=== PATIENT | female | born 1945 | race Caucasian/White ===

== ENCOUNTER 2017-12-19 18:20 | Inpatient (IN) ==
--- NOTE | 2017-12-19 18:50 | Emergency Department Note ---
START Narrative - START START: I examined this patient and my medical decision-making was reviewed with the Resident Physician. I agree with the documented findings, disposition and treatment plan as described except to the extent set forth below. 72 year-old female presents to the emergency room for generalized weakness. Patient also admits to some loose stools as well as urinary and bowel incontinence in her bed associated with some fleeting moments of confusion. She has no focal motor or sensory deficits. She denies chest pain or shortness of breath. No vomiting. She denies blood in her stool. She has had some urinary and bowel incontinence while lying in her bed. She does not walk much. Her family helps her up to the bedside commode as well as to the wheelchair. She has been unable to get up to even help him move herself due to the weakness. We will do a weakness workup on her and anticipate admission.
--- NOTE | 2017-12-19 18:51 | Emergency Department Note ---
Disposition Clinical Impression: Generalized weakness Diarrhea Qualifiers: Diarrhea type: unspecified type Qualified Code(s): R19.7 - Diarrhea, unspecified Disposition: Still a Patient Condition: Fair Forms: ED Satisfaction Letter General Adult HPI - General Chief complaint: ED Nausea/Vomiting/Diarrhea Stated complaint: gen weakness/not eating or drinking/diarrhea Time Seen by Provider: 12/19/17 18:27 Source: patient, family, EMS Mode of arrival: EMS Limitations: no limitations Nursing Notes Reviewed: Yes Vital Signs Reviewed: Yes - History of Present Illness HPI Narrative: 72-year-old female with significant past medical history of CHF presenting to the emergency department with chief complaint of generalized weakness and diarrhea. According to family she has been having these symptoms for a few days. Patient denies any pain at this time. She denies any fever, blood in her stool. Patient is a poor historian. According to family they were concerned because she became slightly altered at home. Patient is at baseline nonambulatory. At this time patient is alert and oriented 3 in the room. Pain Scale: 0 All systems ED: reviewed and negative except as stated. Neurological: Reports: weakness Past Medical History - Past Medical History Attestation: Yes The following information was validated with the patient. Medical history: Reports: arthritis, diabetes, RA Psychiatric history: Reports: no psych history - Social History Smoking Status: Former smoker Smokeless Tobacco Status: No Alcohol use: Reports: none Drug use: Reports: none Physical Exam - General Limitations: no limitations General appearance: alert, in no apparent distress, obese - Head Head exam: atraumatic, normocephalic, normal inspection - Eye Eye exam: Present: normal appearance. Absent: scleral icterus, conjunctival injection - ENT ENT exam: normal exam, mucous membranes dry - Neck Neck exam: Present: normal inspection, full ROM. Absent: tenderness, meningismus - Chest Chest inspection: Present: normal inspection, symmetric chest wall rise. Absent : tenderness, rash - Respiratory Respiratory exam: Present: other (Decreased breath sounds bilaterally) - Cardiovascular Cardiovascular exam: Present: regular rate, normal rhythm, normal heart sounds - Abdominal Exam Abdominal exam: Present: soft, Non-Tender. Absent: distention, guarding, rebound - Extremities Exam Extremities exam: Present: full ROM - Neurological Exam Neurological exam: Present: alert, oriented X3 - Psychiatric Psychiatric exam: Present: normal affect, normal mood - Skin Skin exam: Present: warm, intact Course Course Narrative: 72-year-old female presenting to the emergency Department chief complaint of weakness and confusion at home. Patient denies any pain at this time. Patient is alert and oriented 3 in the room with stable vital signs. We will perform a workup including CBC, CMP, troponin, EKG, chest x-ray and CT of the head. Disposition most likely admission. Pending results. Patient agrees with this plan. Vital Signs Temperature 98.3 F 12/19/17 18:22 Pulse Rate 58 12/19/17 18:22 Respiratory Rate 18 12/19/17 18:22 Blood Pressure 107/51 12/19/17 18:22 O2 Sat by Pulse Oximetry 95 12/19/17 18:22 Temperature 98.3 F 12/19/17 18:22 Pulse Rate 58 12/19/17 18:22 Respiratory Rate 18 12/19/17 18:22 Blood Pressure 107/51 12/19/17 18:22 O2 Sat by Pulse Oximetry 95 12/19/17 18:22 Oxygen Delivery Oxygen Delivery Room Air Medical Decision Making - EKG Data EKG #1 EKG attestation: Yes I reviewed and interpreted this EKG. EKG results narrative: Atrial fibrillation. Left bundle branch block. 66bpm QRS of 94, QTC 47. No signs of acute ST segment elevation or ischemia noted.
[2017-12-19 19:21] LABS: Clarity,Urine Cloudy (Clear)
[2017-12-19 19:22] LABS: Bacteria,Urine None Seen per hpf (None-Few); Hyaline Casts,Urine Few per lpf (None-Few); Squamous Epithelial Cell,Urine Many per lpf (None-Few)
[2017-12-19 19:24] LABS: Basophils % 0.1 %; Eosinophils # 0.1 K/mcL (0.0-0.6); Eosinophils % 0.2 %; Hemoglobin 12.5 g/dL (11.5-15.4); Immature Granulocytes % 1.6 % (0-4); Lymphocytes # 1.2 K/mcL (0.6-4.6); Lymphocytes % 5.8 %; Mean Corpuscular HGB Conc 32.9 g/dL (31.6-35.5); Mean Corpuscular Hemoglobin 31.8 pg (28.0-33.3); Mean Corpuscular Volume 96.7 fL (83.0-100.0); Mean Platelet Volume 9.2 fL (9.4-12.4); Monocytes % 9.7 %; Neutrophils # 16.9 K/mcL (1.6-8.9); Nucleated Red Blood Cells 0.1 /100 WBC (0); Platelet Count 141 K/mcL (140-400); Red Blood Count 3.93 M/mcL (3.82-4.97); Red Cell Distribution Width 16.2 % (11.5-14.5); Segmented Neutrophils % 82.6 %
--- NOTE | 2017-12-19 19:26 | Emergency Department Note ---
Disposition Clinical Impression: Generalized weakness, Unable to ambulate Diarrhea Qualifiers: Diarrhea type: unspecified type Qualified Code(s): R19.7 - Diarrhea, unspecified Abdominal pain Qualifiers: Abdominal location: generalized Qualified Code(s): R10.84 - Generalized abdominal pain Acute renal failure Qualifiers: Acute renal failure type: unspecified Qualified Code(s): N17.9 - Acute kidney failure, unspecified Pneumonia Qualifiers: Pneumonia type: due to unspecified organism Laterality: unspecified laterality Lung location: unspecified part of lung Qualified Code(s): J18.9 - Pneumonia, unspecified organism Disposition: Admitted As Inpatient Condition: Serious Time of Disposition: 22:49 Nausea/Vomiting/Diarrhea HPI - General Chief complaint: ED Nausea/Vomiting/Diarrhea Stated complaint: gen weakness/not eating or drinking/diarrhea Time Seen by Provider: 12/19/17 18:27 Source: patient, family, EMS Mode of arrival: EMS Limitations: no limitations Nursing Notes Reviewed: Yes Vital Signs Reviewed: Yes - Related Data Allergies Allergy/AdvReac Type Severity Reaction Status Date / Time Penicillins Allergy Rash Verified 12/19/17 22:08 Sulfa (Sulfonamide Allergy Itching Verified 12/19/17 22:10 Antibiotics) All systems ED: reviewed and negative except as stated. Constitutional: Denies: fever Cardiovascular: Denies: chest pain, palpitations Respiratory: Denies: cough, dyspnea Gastrointestinal: Reports: abdominal pain, diarrhea. Denies: nausea, vomiting, constipation Genitourinary: Denies: urgency, dysuria, frequency, hematuria Musculoskeletal: Denies: back pain Neurological: Reports: weakness. Denies: headache, numbness, paresthesias Past Medical History - Past Medical History Attestation: Yes The following information was validated with the patient. Source: patient Medical history: Reports: arthritis, diabetes, RA Psychiatric history: Reports: no psych history - Social History Smoking Status: Former smoker Smokeless Tobacco Status: No Alcohol use: Reports: none Drug use: Reports: none Physical Exam Morbidly obese, disheveled, unkempt - General Limitations: no limitations General appearance: alert, in no apparent distress, obese - Head Head exam: atraumatic, normocephalic, normal inspection - Eye Eye exam: Present: normal appearance, PERRL, EOMI - ENT ENT exam: normal exam, normal oropharynx, mucous membranes moist - Neck Neck exam: Present: normal inspection, full ROM, trachea midline - Chest Chest inspection: Present: normal inspection, symmetric chest wall rise - Respiratory Respiratory exam: Present: normal lung sounds bilaterally - Cardiovascular Cardiovascular exam: Present: regular rate, normal rhythm, normal heart sounds - Abdominal Exam Abdominal exam: Present: soft, tenderness (moderate generalized tenderness). Absent: distention, guarding, rebound, rigidity - Extremities Exam Extremities exam: Present: normal inspection, full ROM. Absent: tenderness, pedal edema - Neurological Exam Neurological exam: Present: alert, oriented X3 - Psychiatric Psychiatric exam: Present: normal affect, normal mood - Skin Skin exam: Present: warm, dry, intact, normal color Course Course Narrative: Patient was a signout from Dr. Warren and Dr. Park. Please see their notes for any additional detail. In summary, patient is a 72-year-old female who is a poor historian who presented today due to generalized abdominal pain, diarrhea , generalized weakness, inability to ambulate. Grand [id number] is present and states that she was at the patient and that over the past 2-3 days, she has become progressively weaker, is unable to get in and out of her bed, has been defecating and urinating on herself. She also states the patient has been mildly confused at home. The patient herself denied any other pain besides abdominal discomfort and diarrhea. She denies any chest pain, shortness breath, vomiting, nausea, fevers, dysuria, hematuria. CT scan of the head, EKG, basic blood work, urinalysis, CT abdomen and pelvis has been ordered. 22:41 on exam, patient was dehydrated, had dry mucous membranes. Creatinine came back elevated at 6.0. Patient has never had any renal issues in the past. Most recent creatinine was 0.6. Patient also has elevation white blood cell count of 20. Chest x-ray showed possible pneumonia with a pleural effusion. Head CT negative for any acute intracranial process. CT abdomen and pelvis shows calcification of the superior mesenteric vein that could represent a chronic clot. IV contrast CT scan was unable to be completed at this time due to creatinine. Reevaluation of the patient shows no abdominal pain at this time. I consulted Dr. Garcia with nephrology and discussed the case. It is a possibility that this patient's increased creatinine is due to significant dehydration from diarrhea. She has requested a urine sodium and CPK to be ordered. These were ordered and the ED. Patient was accepted for admission by Dr. Coughlin stable prior to admission. Chest X-Ray 12/19/17 18:30 IMPRESSION: Rotated exam. Left basilar consolidation or atelectasis. Small left pleural effusion is suspected. Radiographic follow-up is suggested. D/ / 12/19/2017 19:18:30 Josh Rachel MD / chavez Interpreting Provider: Josh Rachel MD Head CT 12/19/17 18:47 IMPRESSION: 1. No acute intracranial abnormality. 2. Moderate chronic white matter microvascular ischemic changes. D/ / Magno Xiao / Magno Xiao Interpreting Provider: Magno Xiao Abdomen/Pelvis CT 12/19/17 19:46 IMPRESSION: Left pleural effusion, ascites, and generalized anasarca. Calcifications within the superior mesenteric vein which may reflect chronic clot. Recommend repeating exam with IV contrast to rule out the possibility of acute clot. D/ / Elpidio Butt MD / Elpidio Butt MD Interpreting Provider: Elpidio Butt MD Vital Signs Temperature 98.3 F 12/19/17 18:22 Pulse Rate 58 12/19/17 18:22 Respiratory Rate 18 12/19/17 18:22 Blood Pressure 107/51 12/19/17 18:22 O2 Sat by Pulse Oximetry 95 12/19/17 18:22 Temperature 98.3 F 12/19/17 18:22 Pulse Rate 64 12/19/17 22:25 Respiratory Rate 18 12/19/17 23:20 Blood Pressure 95/58 12/19/17 23:20 O2 Sat by Pulse Oximetry 97 12/19/17 22:25 Oxygen Delivery Oxygen Delivery Nasal Cannula Nausea/Vomiting/Diarrhea - MDM Narrative Medical decision making narrative: Patient was a signout from Dr. Warren and Dr. Park. Please see their notes for any additional detail. In summary, patient is a 72-year-old female who is a poor historian who presented today due to generalized abdominal pain, diarrhea , generalized weakness, inability to ambulate. Grand [id number] is present and states that she was at the patient and that over the past 2-3 days, she has become progressively weaker, is unable to get in and out of her bed, has been defecating and urinating on herself. She also states the patient has been mildly confused at home. The patient herself denied any other pain besides abdominal discomfort and diarrhea. She denies any chest pain, shortness breath, vomiting, nausea, fevers, dysuria, hematuria. CT scan of the head, EKG, basic blood work, urinalysis, CT abdomen and pelvis has been ordered. 22:41 on exam, patient was dehydrated, had dry mucous membranes. Creatinine came back elevated at 6.0. Patient has never had any renal issues in the past. Most recent creatinine was 0.6. Patient also has elevation white blood cell count of 20. Chest x-ray showed possible pneumonia with a pleural effusion. Head CT negative for any acute intracranial process. CT abdomen and pelvis shows calcification of the superior mesenteric vein that could represent a chronic clot. IV contrast CT scan was unable to be completed at this time due to creatinine. Reevaluation of the patient shows no abdominal pain at this time. I consulted Dr. Garcia with nephrology and discussed the case. It is a possibility that this patient's increased creatinine is due to significant dehydration from diarrhea. She has requested a urine sodium and CPK to be ordered. These were ordered and the ED. Patient was accepted for admission by purnima Jaiems prior to admission. - Medical Records Medical records reviewed: Yes I reviewed the patient's medical records. - Lab Data Lab results reviewed: Yes I reviewed the patient's lab results. Result diagrams: 12/19/17 19:13 12/19/17 19:13 Lab Results 12/19/17 12/19/17 12/19/17 Range/Units 19:05 19:13 19:13 WBC 20.4 H (4.3-11.1) K/mcL RBC 3.93 (3.82-4.97) M/mcL Hgb 12.5 (11.5-15.4) g/dL Hct 38.0 (35.3-44.9) % MCV 96.7 (83.0-100.0) fL MCH 31.8 (28.0-33.3) pg MCHC 32.9 (31.6-35.5) g/dL RDW 16.2 H (11.5-14.5) % Plt Count 141 (140-400) K/mcL MPV 9.2 L (9.4-12.4) fL Immature Gran % 1.6 (0-4) % Seg Neutrophils % 82.6 % Lymphocytes % 5.8 % Monocytes % 9.7 % Eosinophils % 0.2 % Basophils % 0.1 % Neutrophils # 16.9 H (1.6-8.9) K/mcL Lymphocytes # 1.2 (0.6-4.6) K/mcL Monocytes # 2.0 H (0.0-1.3) K/mcL Eosinophils # 0.1 (0.0-0.6) K/mcL Basophils # 0.0 (0.0-0.2) K/mcL Nucleated RBCs/100 WBC 0.1 H (0) /100 WBC Sodium 130 L (136-145) mEq/L Potassium 3.1 L (3.5-5.1) mEq/L Chloride 90 L (98-107) mEq/L Carbon Dioxide 24 (23-29) mEq/L BUN 78 H (8-23) mg/dL Creatinine 6.02 H (0.60-1.20) mg/dL Est GFR ( Amer) 8 L (> 60) Est GFR (Non-Af Amer) 7 L (> 60) BUN/Creatinine Ratio 13 (6-26) Glucose 162 H (70-105) mg/dL Calculated Osmolality 297 (280-300) Lactic Acid (0.5-2.2) mmol/L Calcium 8.5 L (8.6-10.3) mg/dL Total Bilirubin 6.0 H (0.3-1.0) mg/dL AST 21 (13-39) Units/L ALT 8 (7-52) Units/L Alkaline Phosphatase 85 (34-104) Units/L Creatine Kinase (30-223) Units/L Troponin I 0.07 H* (< 0.04) ng/mL Serum Total Protein 6.7 (6.4-8.9) g/dL Albumin 2.3 L (3.5-5.7) g/dL Globulin 4.4 H (2.4-3.5) g/dL Albumin/Globulin Ratio 0.5 L (1.1-2.2) Ur Specimen Adequacy See below A Urine Color [place] A (Yellow) Urine Clarity Cloudy A (Clear) Urine pH GLUING PRESSMAN Ur Specific [place] GLUING PRESSMAN Urine Protein GLUING PRESSMAN Urine Glucose (UA) GLUING PRESSMAN Urine Ketones GLUING PRESSMAN Urine Blood GLUING PRESSMAN Urine Nitrite GLUING PRESSMAN Urine Bilirubin GLUING PRESSMAN Urine Urobilinogen GLUING PRESSMAN Ur Leukocyte Esterase GLUING PRESSMAN Urine Microscopic RBC 3-5 H (0-3) per hpf Urine Microscopic WBC 5-15 H (0-3) per hpf Ur Squamous Epith Cells Many H (None-Few) per lpf Amorphous Sediment Many H (Few) Urine Bacteria None Seen (None-Few) per hpf Hyaline Casts Few (None-Few) per lpf Urine Yeast Few H (None Seen) per hpf Ur Culture Indicated? NO (NO) 12/19/17 12/19/17 Range/Units 22:37 22:37 WBC (4.3-11.1) K/mcL RBC (3.82-4.97) M/mcL Hgb (11.5-15.4) g/dL Hct (35.3-44.9) % MCV (83.0-100.0) fL MCH (28.0-33.3) pg MCHC (31.6-35.5) g/dL RDW (11.5-14.5) % Plt Count (140-400) K/mcL MPV (9.4-12.4) fL Immature Gran % (0-4) % Seg Neutrophils % % Lymphocytes % % Monocytes % % Eosinophils % % Basophils % % Neutrophils # (1.6-8.9) K/mcL Lymphocytes # (0.6-4.6) K/mcL Monocytes # (0.0-1.3) K/mcL Eosinophils # (0.0-0.6) K/mcL Basophils # (0.0-0.2) K/mcL Nucleated RBCs/100 WBC (0) /100 WBC Sodium (136-145) mEq/L Potassium (3.5-5.1) mEq/L Chloride (98-107) mEq/L Carbon Dioxide (23-29) mEq/L BUN (8-23) mg/dL Creatinine (0.60-1.20) mg/dL Est GFR ( Amer) (> 60) Est GFR (Non-Af Amer) (> 60) BUN/Creatinine Ratio (6-26) Glucose (70-105) mg/dL Calculated Osmolality (280-300) Lactic Acid 3.5 H (0.5-2.2) mmol/L Calcium (8.6-10.3) mg/dL Total Bilirubin (0.3-1.0) mg/dL AST (13-39) Units/L ALT (7-52) Units/L Alkaline Phosphatase (34-104) Units/L Creatine Kinase 19 L (30-223) Units/L Troponin I (< 0.04) ng/mL Serum Total Protein (6.4-8.9) g/dL Albumin (3.5-5.7) g/dL Globulin (2.4-3.5) g/dL Albumin/Globulin Ratio (1.1-2.2) Ur Specimen Adequacy Urine Color (Yellow) Urine Clarity (Clear) Urine pH Ur Specific [place] Urine Protein Urine Glucose (UA) Urine Ketones Urine Blood Urine Nitrite Urine Bilirubin Urine Urobilinogen Ur Leukocyte Esterase Urine Microscopic RBC (0-3) per hpf Urine Microscopic WBC (0-3) per hpf Ur Squamous Epith Cells (None-Few) per lpf Amorphous Sediment (Few) Urine Bacteria (None-Few) per hpf Hyaline Casts (None-Few) per lpf Urine Yeast (None Seen) per hpf Ur Culture Indicated? (NO) - Radiology Data Radiology results reviewed: Yes I reviewed the patient's radiology results. Chest X-Ray 12/19/17 18:30 IMPRESSION: Rotated exam. Left basilar consolidation or atelectasis. Small left pleural effusion is suspected. Radiographic follow-up is suggested. D/ / 12/19/2017 19:18:30 Josh Rachel MD / bcarter Interpreting Provider: Josh Rachel MD Head CT 12/19/17 18:47 IMPRESSION: 1. No acute intracranial abnormality. 2. Moderate chronic white matter microvascular ischemic changes. D/ / Magno Xiao / Magno Xiao Interpreting Provider: Magno Xiao Abdomen/Pelvis CT 12/19/17 19:46 IMPRESSION: Left pleural effusion, ascites, and generalized anasarca. Calcifications within the superior mesenteric vein which may reflect chronic clot. Recommend repeating exam with IV contrast to rule out the possibility of acute clot. D/ / Elpidio Butt MD / Elpidio Butt MD Interpreting Provider: Elpidio Butt MD Critical Care Time Critical Care Time: Yes Total Critical Care Time: 45 Attestation: Critical care performed: Time is exclusive of separately billable procedures. Time includes: direct patient care, patient reassessment, coordination of patient care, interpretation of data (laboratory data, radiology data, and respiratory data), review of patient's medical records, medical consultation and documentation of patient care. Procedures included in critical care time: Procedures excluded from critical care time: S.B.A.R. - S.B.A.R. Situation: Demographics, MOA Background: Presenting Complaint, Relevant PMH, Meds, & Allergies Assessment: Vital Signs, Course and respsone to treatment, Exam Concerns, Patient/Family Expectation, Pertinant Lab Results, Outstanding Labs Recommendation: Barrier(s) to disposition, Recommendation based on pending studies, treatments, or consults S.B.A.R. Report Given to: Dr. Coughlin Attestation Statement - Attestation Attestation: I, Ge Collazo MD, personally evaluated this patient and discussed their management with the resident physician. I reviewed the resident's note and agree with the documented findings, medical decision making, and plan of care. This patient was signed out at shift change from Dr. Yfn Warren and Dr. Park. Please refer to their notes for complete details of history and physical examination. Patient presented with diarrhea and generalized weakness. She has apparently been sick for several weeks. She lives with a son and other family members report that when they went over today they found her in bed soaked with urine and feces in reported she appeared to have not been out of bed in several days. Patient is awake alert and oriented. She complains of diarrhea and some mid abdominal pain. She denies any chest pain or increased shortness of breath. She has not noticed any fever. She states that she has been urinating somewhat less than usual and her urine has been dark. On examination patient is a morbidly obese elderly female in no acute distress. She is alert and oriented 3. There is no cyanosis or diaphoresis. Breath sounds are equal bilaterally with no definite rales or wheezes noted. Heart regular rate and rhythm. Abdomen is soft with normal bowel sounds. Mild mid abdominal tenderness. Labs reviewed. WBC 20.4 with 82.6% segs. Creatinine 6.0 tube. All prior creatinines have been normal. Lactic acid 3.5. Total bilirubin 6.0. Troponin 0.07. Chest x-ray shows: Rotated exam. Left basilar consolidation or atelectasis. Small left pleural effusion is suspected. Head CT shows no acute intracranial abnormality. CT scan of the abdomen and pelvis without contrast shows: Left pleural effusion, ascites, and generalized anasarca. Calcifications within the superior mesenteric vein which may reflect chronic clot. Recommend repeating exam with IV contrast to rule out the possibility of acute clot. Dr. Clayton discussed the case with the twisting operator, Dr. Garcia. The hospitalist , Dr. Coughlin, was consulted and accepted admission of the patient.
[2017-12-19 19:30] LABS: Color,Urine Orange (Yellow)
[2017-12-19] MEDS ORDERED: 0.9 % Sodium Chloride 1,000 ML IVC ONE ×2 (19:40→19:56)
[2017-12-19 19:44] LABS: Albumin 2.3 g/dL (3.5-5.7); Albumin/Globulin Ratio 0.5 (1.1-2.2); Calcium 8.5 mg/dL (8.6-10.3); Globulin 4.4 g/dL (2.4-3.5); Potassium 3.1 mEq/L (3.5-5.1); Total Protein 6.7 g/dL (6.4-8.9)
[2017-12-19 19:47] LABS: Troponin I 0.07 ng/mL (< 0.04)
[2017-12-19 19:50] LABS: Amorphous Sediment,Urine Many (Few); Yeast,Urine Few per hpf (None Seen)
[2017-12-19] MEDS ORDERED: Aspirin 325 MG TABLET PO ONE (21:48)
[2017-12-19] MEDS ORDERED: cefTRIAXone 2,000 MG in Water for inj. (sterile) 20 ML 20 ML IVPB ONE (22:20)
[2017-12-19] MEDS ORDERED: Potassium Chloride Elixir 20 MEQ/15 ML UDC PO ONE (22:20)
[2017-12-19] MEDS ORDERED: Azithromycin 500 MG in D5% in Water 250 ML IVPB ONE (22:20)
--- NOTE | 2017-12-19 23:53 | Internal Med History&Physical ---
Date of Encounter: 12/19/17 Time of Encounter: 23:47 Assessment and Plan (1) Multiple sclerosis Current visit: Yes Status: Chronic Patient on daughter says she has multiple sclerosis for many years but does not follow up with neurology is unclear if any contribution to her weakness and incontinence we will consult neurology for further evaluation (2) Leukocytosis Current visit: Yes Status: Acute Acute infectious process possible pneumonia and infectious gastroenteritis Qualifiers: Leukocytosis type: bandemia Qualified Code(s): D72.825 - Bandemia (3) Dehydration Current visit: Yes Status: Acute Due to nausea vomiting and diarrhea (4) Abdominal pain Current visit: Yes Status: Acute Generalized and nonspecific CT of the abdomen unremarkable Qualifiers: Abdominal location: generalized Qualified Code(s): R10.84 - Generalized abdominal pain (5) Acute renal failure Current visit: Yes Status: Acute very likely due to dehydration evening sitter consulted Qualifiers: Acute renal failure type: unspecified Qualified Code(s): N17.9 - Acute kidney failure, unspecified (6) Diarrhea Current visit: Yes Status: Acute Patient has nausea vomiting and diarrhea suggestive of gastroenteritis appears to have been persistent for about 2-3 weeks we will consult GI for further evaluation no recent antibiotic Qualifiers: Diarrhea type: unspecified type Qualified Code(s): R19.7 - Diarrhea, unspecified (7) Generalized weakness Current visit: Yes Status: Acute Patient with generalized weakness and unable to walk or ambulate (8) Unable to ambulate Current visit: Yes Status: Acute Internal Medicine - H&P: HPI Chief complaint: nausea, vomitting and diaarhea Admitted From: Emergency Dept Plans for Post Hospital Care: Home History of present illness: Ms. Ambriz is a 72 year old female Patient with history of morbid obesity, diabetes, rheumatoid arthritis, multiple sclerosis but not on medication nor being followed by neurology.. Patient presented emergency room due to generalized weakness has been having urinary incontinence and bowel incontinence and some confusion unable to ambulate daughter says she been weak for about 2 weeks but much more weak in the last 2-3 days with persistent nausea vomiting and diarrhea with poor by mouth intake and some vague abdominal pain patient has multiple studies CT of the head unremarkable CT of the abdomen was unremarkable except for calcified superior mesenteric vein labs showed creatinine about 6 of acute renal failure nephrology has been consult patient on IV dehydration denies any recent antibiotic we will check C. difficile anyway also had leukocytosis a white count over 20,000 chest x-ray suggestive of pneumonia with pleural effusion. It is unclear about multiple sclerosis since she does not have a neurology whether has any contribution to her weakness and incontinence. Past Med Surg Social Fam HX - Past Medical History Medical history: arthritis, diabetes, RA Psychiatric history: no psych history - Social History Smoking Status: Former smoker Smokeless Tobacco Status: No Alcohol use: none Drug use: none Internal Medicine - H&P: Meds 3 Allergy/AdvReac Type Severity Reaction Status Date / Time Penicillins Allergy Rash Verified 12/19/17 22:08 Sulfa (Sulfonamide Allergy Itching Verified 12/19/17 22:10 Antibiotics) ROS unobtainable: due to mental status All Systems PM: A 10-system review of systems was performed and is negative for pertinent findings except as documented above in the HPI. - Constitutional Vitals: Temp Pulse Resp BP Pulse Ox 98.3 F 64 18 95/58 97 12/19/17 18:22 12/19/17 22:25 12/19/17 23:20 12/19/17 23:20 12/19/17 22:25 - Head Head exam: Present: atraumatic, normocephalic - Eye Eye exam: Present: PERRL, conjuntiva pink, sclera anicteric Pupils: Present: PERRL - Respiratory Respiratory exam: Present: rhonchi - Cardiovascular Cardiovascular exam: Present: RRR, +S1, +S2. Absent: diastolic murmur, gallop, rubs, systolic murmur - GI/Abdominal GI/Abdominal exam: Present: tenderness Internal Med - H&P Results - Labs CBC & Chem 7: 12/19/17 19:13 12/19/17 19:13
[2017-12-19] MEDS ORDERED: Naloxone 0.4 MG/ML INJ IVP PRN (23:58)
[2017-12-20] MEDS: Azithromycin 500 MG in D5% in Water 250 ML IVPB SCH (00:56)
[2017-12-20] MEDS: 0.9 % Sodium Chloride 1,000 ML IVC SCH (00:56)
[2017-12-20] MEDS: Acetaminophen 325 MG TABLET PO PRN (02:22)
[2017-12-20 02:26] LABS: Mean Platelet Volume 9.3 fL (9.4-12.4)
[2017-12-20 02:27] LABS: Hematocrit 36.6 % (35.3-44.9); Hemoglobin 12.2 g/dL (11.5-15.4); Mean Corpuscular HGB Conc 33.3 g/dL (31.6-35.5); Mean Corpuscular Hemoglobin 32.1 pg (28.0-33.3); Mean Corpuscular Volume 96.3 fL (83.0-100.0); Platelet Count 120 K/mcL (140-400); Red Cell Distribution Width 16.3 % (11.5-14.5)
[2017-12-20 02:44] LABS: Albumin 2.2 g/dL (3.5-5.7); Albumin/Globulin Ratio 0.5 (1.1-2.2); Bilirubin,Total 6.1 mg/dL (0.3-1.0); Calcium 8.4 mg/dL (8.6-10.3); Chol/HDL Ratio 12.2 (0-4.9); Globulin 4.5 g/dL (2.4-3.5); Magnesium 1.9 mg/dL (1.6-2.6); Potassium 3.3 mEq/L (3.5-5.1); Total Protein 6.7 g/dL (6.4-8.9)
[2017-12-20] MEDS ORDERED: *HR* Enoxaparin 40 MG/0.4 ML SYRINGE SQ SCH (06:00)
[2017-12-20] MEDS ORDERED: Ondansetron 4 MG/2 ML VIAL IVP PRN (08:07)
[2017-12-20] MEDS: cefTRIAXone 1,000 MG in Water for inj. (sterile) 20 ML 10 ML IVP SCH (08:38)
--- NOTE | 2017-12-20 11:05 | Gastroenterology Consult Note ---
<Rica Garcia - Last Filed: 12/20/17 11:51> Date of Encounter: 12/20/17 Time of Encounter: 09:45 - Assessment and plan (1) Acute renal failure Current Visit: Yes Status: Acute Assessment and plan: New onset renal failure, may be related to vomiting and diarrhea. IV hydration, needs nephrology consult. Will check stool studies and proceed with colonoscopy when ok with nephrology. Qualifiers: Acute renal failure type: unspecified Qualified Code(s): N17.9 - Acute kidney failure, unspecified (2) Nausea and vomiting Current Visit: Yes Status: Acute Assessment and plan: Pts daughter reports nausea and vomiting and poor appetite for the past 3 weeks , CT abdomen normal except for ascites. Anticipate EGD, will discuss with Dr Schuster. Qualifiers: Vomiting type: cyclical vomiting Vomiting Intractability: intractable Qualified Code(s): G43.A1 - Cyclical vomiting, intractable (3) Cirrhosis of liver Current Visit: Yes Status: Acute Assessment and plan: Pt had EGD in 2010 that showed Grade I varices. She will need repeat EGD to monitor varices. She has not followed up with GI since that time. Will order workup for infectious, autoimmune hepatitis. Will also check ammonia, as pt has altered mental status, may need lactulose and/or rifaximin. She reported a history of MS, unsure of her baseline status. Will order liver ultrasound to rule out CBD obstrucion as cause for elevated LFTs. Qualifiers: Hepatic cirrhosis type: other cirrhosis Qualified Code(s): K74.69 - Other cirrhosis of liver (4) Diarrhea Current Visit: Yes Status: Acute Assessment and plan: Stool studies ordered, needs colonoscopy to rule out microscopic colitis when WBC is improved and ok with nephrology. Qualifiers: Diarrhea type: unspecified type Qualified Code(s): R19.7 - Diarrhea, unspecified - Time Spent With Patient Total time spent is greater than 50% in coordination of care (as documented) at patient's floor/unit and/or counseling patient: GI History of Present Illness - Data of Consult Patient: new to practice Consult date: 12/20/17 Requesting Physician: Aj Gallagher - Consult Narrative Reason for consult: cirrhosis of the liver History of present illness: Ms. Ambriz is a 72 year old female patient with a history of morbid obesity, diabetes, rheumatoid arthritis, multiple sclerosis (not on medication nor being followed by neurology), documented history of cirrhosis in 2010 (never been seen by GI0. Patient presented emergency room due to generalized weakness has been having urinary incontinence and bowel incontinence and some confusion unable to ambulate daughter says she been weak for about 2 weeks but much more weak in the last 2-3 days. She also reported persistent nausea vomiting and diarrhea with poor by mouth intake and some vague abdominal pain. CT of the head unremarkable, CT of the abdomen was unremarkable except for calcified superior mesenteric vein, and moderate amount of ascites and general anasarca. Chest x-ray suggestive of pneumonia with pleural effusion. WBC 27, hgb 12.2, PLT 120, NA 129, K 3.3, Creat 5.96, T bili 6.1, AST 18, ALT 7, troponin 0.07, albumin 2.2, CT abdomen shows Left pleural effusion, ascites, and generalized anasarca.Calcifications within the superior mesenteric vein which may reflect chronic clot. Pt is a very poor historian, no family present to elicit history from. MELD NA Child Noonan Colonoscopy: EGD: 01/16 reactive gastropathy grade I varices (Dr Park) NSAIDS/ASA:asa Anticoagulants: lovenox Past Med Surg Social Fam HX - Past Medical History Medical history: arthritis, diabetes, RA Psychiatric history: no psych history - Past Surgical History Surgical History: cholecystectomy - Social History Smoking Status: Former smoker Smokeless Tobacco Status: No Alcohol use: none Drug use: none - Family History Mother Living Status: Cause of : cancer Hx Family Cancer: Yes (throat cancer) Father Living Status: Hx Family Cancer: Yes (lung cancer) ROS unobtainable: due to mental status - Constitutional Vitals: Temp Pulse Resp BP Pulse Ox 97.8 F 73 15 96/69 99 12/20/17 10:10 12/20/17 10:10 12/20/17 10:10 12/20/17 10:10 12/20/17 10:10 Exam: CONSTITUTIONAL:~alert, but unable to answer questions, no acute distress.~HEAD:~ normocephalic.~EYES:~mild icterus.~NECK:~no obvious swelling.~HEART:~regular rate and rhythm, no murmurs.~LUNGS:~bilateral poor air entry.~ABDOMEN:~distended , soft, non tender, difficult to asses for masses or organomegaly due to obese pendulous abdomen, orange peel edema noted to lower abdomen, orange urine noted in the do .~RECTAL EXAM:~Deferred.~EXTREMITIES:~no clubbing, cyanosis, 2+ BLE with brown discoloration.~SKIN:~mild icterus.~NEUROLOGIC:~poor historian and pt is unable to answer questions effectively although she is alert and talking~~~ Results - Labs CBC & Chem 7: 12/20/17 02:10 12/20/17 02:10 Labs: Last Result Calcium 8.4 mg/dL (8.6-10.3) L 12/20/17 02:10 Troponin I 0.07 ng/mL (< 0.04) H* 12/19/17 19:13 Triglycerides 112 mg/dL (< 150) 12/20/17 02:10 Entire Visit Hgb 12.2 g/dL (11.5-15.4) 12/20/17 02:10 Hct 36.6 % (35.3-44.9) 12/20/17 02:10 Total Bilirubin 6.1 mg/dL (0.3-1.0) H 12/20/17 02:10 AST 18 Units/L (13-39) 12/20/17 02:10 ALT 7 Units/L (7-52) 12/20/17 02:10 Consult Discharge Plan - Plan Referrals: Cristiana Arreaga MD [Primary Care Provider] - <MarielyPatriziaIsrael - Last Filed: 12/20/17 20:39> Date of Encounter: 12/20/17 Time of Encounter: 14:25 - Time Spent With Patient Total time spent is greater than 50% in coordination of care (as documented) at patient's floor/unit and/or counseling patient: GI History of Present Illness - Data of Consult Requesting Physician: Aj Gallagher - Consult Narrative History of present illness: Ms. Ambriz is a 72 year old female - Constitutional Vitals: Temp Pulse Resp BP Pulse Ox 97.8 F 71 14 94/57 95 12/20/17 14:41 12/20/17 14:41 12/20/17 14:41 12/20/17 14:41 12/20/17 14:41 Results - Labs CBC & Chem 7: 12/20/17 02:10 12/20/17 02:10 Labs: Last Result Calcium 8.4 mg/dL (8.6-10.3) L 12/20/17 02:10 Iron 92 mcg/dL (50-170) 12/20/17 11:05 % Saturation 82 % (15-50) H 12/20/17 11:05 Transferrin 80 mg/dL (203-362) L 12/20/17 11:05 Troponin I 0.07 ng/mL (< 0.04) H* 12/19/17 19:13 Triglycerides 112 mg/dL (< 150) 12/20/17 02:10 Entire Visit Hgb 12.2 g/dL (11.5-15.4) 12/20/17 02:10 Hct 36.6 % (35.3-44.9) 12/20/17 02:10 PT 24.8 Seconds (9.4-12.1) H 12/20/17 10:51 Total Bilirubin 6.1 mg/dL (0.3-1.0) H 12/20/17 02:10 AST 18 Units/L (13-39) 12/20/17 02:10 ALT 7 Units/L (7-52) 12/20/17 02:10 Ammonia 48 mcmol/L (16-53) 12/20/17 10:51 - ABG ABG results: PT/INR, D-dimer PT 24.8 Seconds (9.4-12.1) H 12/20/17 10:51 - Attending Attestation I have personally performed a face to face evaluation on this patient. I have reviewed and agree with the care plan. History and Exam by me shows: Pt with cirrhosis now with acute renal failure with diarrhea ~ 1 week. Has coagulopathy and low albumin. r/o SBP Rec: ARF management per nephrology. IV albumin and Vit K . Stool studies. No need for scopes at this point. Ascitic tap diagnostic
[2017-12-20 11:21] LABS: INR 2.3; Prothrombin Time 24.8 Seconds (9.4-12.1)
[2017-12-20 11:49] LABS: % Iron Saturation 82 % (15-50); Iron 92 mcg/dL (50-170); Transferrin 80 mg/dL (203-362)
--- NOTE | 2017-12-20 13:06 | Nephrology Consult Note ---
Date of Encounter: 12/20/17 Time of Encounter: 14:30 Assessment and Plan (1) YURI (acute kidney injury) Current Visit: Yes Status: Acute Elevated SCr in the setting of decreased po intake, N/V/D and hypotension appears pre-renal Agree with volume repletion. SCr has note improved much overnight but will continue agree with holding diuretics Discussed in great details with patient and family the possible need for SYSTEMS PROTECTION TECHNICIAN if more improvement by tomorrow especially given patient's significant third spacing. Pt and family very agreeable to proceed with whatever necessary Avoid nephrotoxins if possible UOp not impressive so far urine sodium noted low at 10. will repeat US as previous results not complete will check CPK and uric acid levels Will consider iVF and/or albumin boluses if needed to maintain BP readings Obtain US of kidney (2) Hypokalemia Current Visit: Yes Status: Acute Potassium decreased due to GI losses. Replete gently (3) Cirrhosis of liver Current Visit: Yes Status: Acute Per GI, already in workup. Third spacing as a result with ascite, pleural effusion noted on CT Qualifiers: Hepatic cirrhosis type: other cirrhosis Qualified Code(s): K74.69 - Other cirrhosis of liver History of Present Illness - Reason for Consult Consult date: 12/20/17 Acute Kidney Injury Requesting physician: Luan Clayton - History of Present Illness 72 y o female with PMH of morbid obesity, DM, MS per family and RA mostly bed bound admitted with worsening generalized weakness along with decerased po intake and N/V/D for several day. Per family, pt has been unable to get out of bed at all for the past 2-3 weeks. Scr noted at 6.02, GFR 7 with previous SCr noted at 0.98, GFR >60. Family denies any new medications but reports pt was taking laisx for edema with not much improvement. No NSAIDs use. BP readings noted low down to 80s/40s on presentation. Past Med Surg Social Fam HX - Past Medical History Medical history: arthritis, diabetes, RA Psychiatric history: no psych history - Past Surgical History Surgical History: cholecystectomy - Social History Smoking Status: Former smoker Smokeless Tobacco Status: No Alcohol use: none Drug use: none - Family History Mother Living Status: Cause of : cancer Hx Family Cancer: Yes (throat cancer) Father Living Status: Hx Family Cancer: Yes (lung cancer) Medications and Allergies Atenolol [Tenormin] 25 mg PO DAILY 12/20/17 [History] Ergocalciferol (VITAMIN D2) [Vitamin D2] 50,000 unit PO QWEEK 12/20/17 [History] Furosemide [Lasix] 40 mg PO BID 12/20/17 [History] Omeprazole [PriLOSEC] 40 mg PO DAILY 12/20/17 [History] Oxycodone HCl [Oxycodone HCl] 15 mg PO DAILY 12/20/17 [History] 3 Allergy/AdvReac Type Severity Reaction Status Date / Time Penicillins Allergy Rash Verified 12/19/17 22:08 Sulfa (Sulfonamide Allergy Itching Verified 12/19/17 22:10 Antibiotics) Review of Systems All Systems: reviewed and no additional remarkable complaints except as stated ( 10 systems reviewed) Exam - Vital Signs Vital signs: Initial Vital Signs Temp Pulse Resp BP Pulse Ox 98.3 F 58 18 107/51 95 12/19/17 18:22 12/19/17 18:22 12/19/17 18:22 12/19/17 18:22 12/19/17 18:22 Vital Signs - Last 8 Hours Temp Pulse Resp BP Pulse Ox 12/20/17 10:10 97.8 F 73 15 96/69 99 12/20/17 06:40 97.6 F 67 12 92/55 97 Intake and Output 12/19/17 12/20/17 12/20/17 23:59 07:59 15:59 Intake Total 250 / 250 60 / 60 Output Total 25 / 25 Balance 225 / 225 60 / 60 Intake: IV Fluids 250 / 250 Zithromax 500 mg In Dextrose 5% 250 / 250 250 ML @ 252 mls/hr IVPB Q24H [facility] Rx#:[id number] Oral 0 / 0 60 / 60 Output: Urine 25 / 25 Catheter 0 / 0 Other: Meal Breakfast Percent of Meal Consumed 5% Weight 149.7 kg 149.7 kg Blood Glucose* 161 149 Patient Weight 12/20/17 23:59 Weight 149.7 kg - General Appearance General appearance: obese, chronically ill EENT: ATNC, mucous membranes dry, scleral icterus Neck: no JVD, supple Additional Comments: decreased BS bases Cardiology: edema (LE bilat), normal S1, normal S2 Gastrointestinal: no tenderness, no guarding, obese Integumentary: warm and dry Neurologic: no focal deficit Musculoskeletal: no deformities Psychiatric: mood/affect appropriate, cooperative Results - Lab Results 12/20/17 02:10 12/20/17 02:10 Most recent lab results Calcium 8.4 mg/dL (8.6-10.3) L 12/20/17 02:10 Magnesium 1.9 mg/dL (1.6-2.6) 12/20/17 02:10 Urine Sodium 10.3 mEq/L 12/19/17 19:54 Consult Discharge Plan - Plan Referrals: Cristiana Arreaga MD [Primary Care Provider] -
--- NOTE | 2017-12-20 16:30 | Neurology - Consult Note ---
Date of Encounter: 12/20/17 Time of Encounter: 16:24 Assessment and Plan (1) Generalized weakness Current Visit: Yes Status: Acute At this juncture given what I do know I am not convinced that this patient has multiple sclerosis. But unfortunately I am not able to give a good history because of the delirium. One factor however is that the MRI scan of the brain completed in February 2012 was essentially normal. At that time she would then 67 years old, and certainly if she had demyelinating disease it would have been apparent by then. Perhaps they have had an episode of optic neuritis at some time of her life. Certainly I am doubtful that demyelinating disease is in anyway related to her acute admission. She is bedridden and nonambulatory at her baseline. Certainly she has multiple reasons for acute delirium, she has an elevated white count, BUN and creatinine are elevated, serum lactate is elevated. She has had diarrhea which may suggest acute gastroenteritis. She denies headache or nuchal rigidity. It is doubtful that a central nervous system infectious process is playing a role here. Her neck is supple. I will try to reassess her tomorrow. However, even if she does have multiple sclerosis, given her overall medical condition and her age I would not likely start her on disease modifying therapy. We will obtain a CT scan of the head to rule out any other acute process. History of Present Illness HPI: Ms. Ambriz is a 72 year old female who is seen for neurologic consultation secondary to possible history of multiple sclerosis. She is admitted acutely secondary to profound weakness, lethargy and loose stools. She is nonambulatory at baseline. She really cannot give a good history as she is very somnolent. She denies headache, she denies neck pain. She is morbidly obese and has multiple chronic problems. She cannot really tell me when she was diagnosed with MS. I see that she did have an MRI scan of the head back in February 2012 which was normal. 5 years ago she would have been 67 years old. Certainly if she had multiple sclerosis that should be demyelinating plaques present. She is being seen by GI and due to a history of cirrhosis of the liver GI is working her up for other possibilities. Lactic acid is elevated which is one possible scenario for her mental status change. WBCs today are 27.2. BUN is 77 , creatinine is 5.96. She does have a history of diabetes. Past Med Surg Social Fam HX - Past Medical History Medical history: arthritis, diabetes, RA Psychiatric history: no psych history - Past Surgical History Surgical History: cholecystectomy - Social History Smoking Status: Former smoker Smokeless Tobacco Status: No Alcohol use: none Drug use: none - Family History Mother Living Status: Cause of : cancer Hx Family Cancer: Yes (throat cancer) Father Living Status: Hx Family Cancer: Yes (lung cancer) Medications and Allergies Atenolol [Tenormin] 25 mg PO DAILY 12/20/17 [History] Ergocalciferol (VITAMIN D2) [Vitamin D2] 50,000 unit PO QWEEK 12/20/17 [History] Furosemide [Lasix] 40 mg PO BID 12/20/17 [History] Omeprazole [PriLOSEC] 40 mg PO DAILY 12/20/17 [History] Oxycodone HCl [Oxycodone HCl] 15 mg PO DAILY 12/20/17 [History] 3 Allergy/AdvReac Type Severity Reaction Status Date / Time Penicillins Allergy Rash Verified 12/19/17 22:08 Sulfa (Sulfonamide Allergy Itching Verified 12/19/17 22:10 Antibiotics) All Systems: The remainder of the systems were reviewed and are negative Review of Systems: Review of systems is consistent with a history of present illness and otherwise negative. Physical Examination - Vital Signs Vital Signs: Initial Vital Signs Temp Pulse Resp BP Pulse Ox 98.3 F 58 18 107/51 95 12/19/17 18:22 12/19/17 18:22 12/19/17 18:22 12/19/17 18:22 12/19/17 18:22 - Exam Exam: Neurologic examination finds the following; Cerebral functions-she is arousable to voice, however she is somnolent and has difficulty staying awake. She is also mildly confused. These findings are consistent with acute delirium. She is able to follow some simple commands and answers some questions appropriately, others not so. She does make eye contact. She is able to identify correctly the number of fingers that I held up in front of her. She knows that she is in [facility]. Cranial nerves-pupils are equal and reactive to light, extraocular motility is intact. Funduscopic examination is difficult because of her position in the bed. Corneal reflexes are brisk bilaterally. There is no facial asymmetry. Speech is somewhat dysarthric however she is edentulous as well as somewhat drowsy. Tongue protrudes midline. Cerebellar functions-there is no nystagmus or ocular bobbing. Motor exam finds no focal deficits. She squeezes with full power with both upper and bottom lacer hand. Her legs are weak however she is able to wiggle the toes on both feet on command. Tibialis anterior strength is 4/5 symmetrically. There are no involuntary movements identified no atrophy present. Sensory exam finds decreased sensation to pinprick distally. Deep tendon reflexes are diminished throughout. No Babinski or ankle clonus are present. Results - Laboratory Findings CBC and BMP: 12/20/17 02:10 12/20/17 02:10 Abnormal lab findings: Abnormal lab results WBC 27.2 K/mcL (4.3-11.1) H 12/20/17 02:10 RBC 3.80 M/mcL (3.82-4.97) L 12/20/17 02:10 RDW 16.3 % (11.5-14.5) H 12/20/17 02:10 Plt Count 120 K/mcL (140-400) L 12/20/17 02:10 MPV 9.3 fL (9.4-12.4) L 12/20/17 02:10 Neutrophils # 16.9 K/mcL (1.6-8.9) H 12/19/17 19:13 Monocytes # 2.0 K/mcL (0.0-1.3) H 12/19/17 19:13 Nucleated RBCs/100 WBC 0.1 /100 WBC (0) H 12/19/17 19:13 PT 24.8 Seconds (9.4-12.1) H 12/20/17 10:51 Sodium 129 mEq/L (136-145) L 12/20/17 02:10 Potassium 3.3 mEq/L (3.5-5.1) L 12/20/17 02:10 Chloride 91 mEq/L (98-107) L 12/20/17 02:10 BUN 77 mg/dL (8-23) H 12/20/17 02:10 Creatinine 5.96 mg/dL (0.60-1.20) H 12/20/17 02:10 Est GFR ( Amer) 8 (> 60) L 12/20/17 02:10 Est GFR (Non-Af Amer) 7 (> 60) L 12/20/17 02:10 Glucose 196 mg/dL (70-105) H 12/20/17 02:10 POC Glucose 176 (58-89) H 12/19/17 23:55 Lactic Acid 2.8 mmol/L (0.5-2.2) H 12/20/17 13:30 Uric Acid 22.2 mg/dL (2.3-7.6) H 12/20/17 13:30 Calcium 8.4 mg/dL (8.6-10.3) L 12/20/17 02:10 % Saturation 82 % (15-50) H 12/20/17 11:05 Transferrin 80 mg/dL (203-362) L 12/20/17 11:05 Total Bilirubin 6.1 mg/dL (0.3-1.0) H 12/20/17 02:10 Creatine Kinase 19 Units/L (30-223) L 12/19/17 22:37 Troponin I 0.07 ng/mL (< 0.04) H* 12/19/17 19:13 B-Natriuretic Peptide 989 pg/mL (Less than 100) H 12/20/17 02:10 Albumin 2.2 g/dL (3.5-5.7) L 12/20/17 02:10 Globulin 4.5 g/dL (2.4-3.5) H 12/20/17 02:10 Albumin/Globulin Ratio 0.5 (1.1-2.2) L 12/20/17 02:10 HDL Cholesterol 5 mg/dL (40-59) L 12/20/17 02:10 Cholesterol/HDL Ratio 12.2 (0-4.9) H 12/20/17 02:10 Ur Specimen Adequacy See below A 12/19/17 19:05 Urine Color Harlan (Yellow) A 12/19/17 19:05 Urine Clarity Cloudy (Clear) A 12/19/17 19:05 Urine Microscopic RBC 3-5 per hpf (0-3) H 12/19/17 19:05 Urine Microscopic WBC 5-15 per hpf (0-3) H 12/19/17 19:05 Ur Squamous Epith Cells Many per lpf (None-Few) H 12/19/17 19:05 Amorphous Sediment Many (Few) H 12/19/17 19:05 Urine Yeast Few per hpf (None Seen) H 12/19/17 19:05 Consult Discharge Plan - Plan Referrals: Cristiana Arreaga MD [Primary Care Provider] -
[2017-12-20] MEDS ORDERED: Furosemide 40 MG/4 ML VIAL IVP ONE (16:37)
[2017-12-20] MEDS: *HR* Heparin 5,000 UNIT/ML VIAL SQ SCH ×2 (17:16→22:06)
[2017-12-20] MEDS ORDERED: RASBURICASE IV ONE (18:00)
[2017-12-20] MEDS ORDERED: SODIUM CHLORIDE 0.9% IV ONE (18:00)
[2017-12-20 20:11] LABS: Bilirubin,Urine Large (Negative); Blood,Urine Large (Negative); Clarity,Urine Cloudy (Clear); Color,Urine Red (Yellow); Glucose,Urine (UA) Normal (Normal); Ketones,Urine Trace mg/dL (Negative); Leukocyte Esterase,Urine Small (Negative); Nitrite,Urine Positive (Negative); PH,Urine 5.5 pH Units (5.0-8.0); Protein,Urine 100 mg/dL (Neg-Trace); Specific Gravity,Urine 1.023 (1.010-1.025); Urobilinogen,Urine Normal (Normal)
[2017-12-20 20:15] LABS: Yeast,Urine Many per hpf (None Seen)
--- NOTE | 2017-12-20 21:23 | Internal Med Progress Note ---
Date of Encounter: 12/20/17 Time of Encounter: 21:21 - Assessment and plan (1) Acute renal failure Current Visit: Yes Status: Acute Assessment and plan: Minimally improved with IVF. Cr = 5.96. UOP poor per nursing staff. IVF stopped due to significant edema; given IV lasix 20 mg once to see if it improves edema and UOP. Nephrology consulted; appreciate input. Avoid nephrotoxins. Encourage PO hydration. Recheck BMP in AM. Qualifiers: Acute renal failure type: unspecified Qualified Code(s): N17.9 - Acute kidney failure, unspecified (2) Dehydration Current Visit: Yes Status: Acute Assessment and plan: Likely secondary to N/V. IVF hydration held for now as per above. Encourage PO hydration at this time. (3) Leukocytosis Current Visit: Yes Status: Acute Assessment and plan: Worsened. WBC = 27.2. Possibility of pneumonia and/or infective gastroenteritis. Continue rocephin and azithromycin at this time. Qualifiers: Leukocytosis type: bandemia Qualified Code(s): D72.825 - Bandemia (4) Abdominal pain Current Visit: Yes Status: Resolved Assessment and plan: Resolved at this time. GI consulted; appreciate input. Will monitor for recurrence. Qualifiers: Abdominal location: generalized Qualified Code(s): R10.84 - Generalized abdominal pain (5) Diarrhea Current Visit: Yes Status: Acute Assessment and plan: Suggestive of infectious gastroenteritis. Persistent over last 2-3 weeks. GI consulted appreciate input. Will need EGD and colonoscopy when stable. Liver U /S pending. Address dehydration as per above. Qualifiers: Diarrhea type: unspecified type Qualified Code(s): R19.7 - Diarrhea, unspecified (6) Generalized weakness Current Visit: Yes Status: Acute Assessment and plan: Patient with generalized weakness and unable to walk or ambulate. Will address acute issues as per above and get PT/OT consult when medically stable. History of MS, as per below, and this may be contributing, however full extent of disease and history unknown. Neurology consulted; appreciate input. (7) Unable to ambulate Current Visit: Yes Status: Acute (8) Multiple sclerosis Current Visit: Yes Status: Chronic Assessment and plan: Neurology consulted; appreciate input. Likely not a good candidate for disease modifying therapy. (9) Hypokalemia Current Visit: Yes Status: Acute Assessment and plan: Improved. K = 3.3. Give KCl 40 mEq PO once. Recheck BMP in AM. - Time Spent With Patient less than 15 minutes - Subjective Interval history: Patient had no acute events overnight. She states that she is feeling better this AM. She is alert and oriented, but has difficult time finding words and recalling things. She denies SOB, chest pain, fever, or chills. She has no new complaints. Nursing staff reports that patient more edematous this AM, so IVF held. Nursing staff also reports poor UOP and PO intake. She denies any further N/V. - Constitutional Vitals: Temp Pulse Resp BP Pulse Ox 98.3 F 78 16 98/60 98 12/20/17 20:00 12/20/17 20:00 12/20/17 20:00 12/20/17 20:00 12/20/17 20:00 General appearance: Present: A&O X 3, morbidly obese, pleasant, no acute distress. Absent: answers questions appropriately (Poor word finding, and poor memory/recall) - Respiratory Respiratory exam: Present: CTAB. Absent: accessory muscle use, rales, wheezes Additional comments: Normal WOB, intermittent rhonchi - Cardiovascular Cardiovascular exam: Present: RRR, +S1, +S2. Absent: diastolic murmur, gallop, rubs, systolic murmur Additional comments: 2+ pitting BUE and BLE edema - GI/Abdominal GI/Abdominal exam: Present: normal bowel sounds, soft. Absent: distended, hepatomegaly, mass, splenomegaly, tenderness - Psychiatric Psychiatric exam: Present: normal affect, normal mood. Absent: anxious, depressed - Skin Skin exam: Present: dry, intact, warm. Absent: cyanosis, rash Internal Medicine: Result - Labs CBC & Chem 7: 12/20/17 02:10 12/20/17 02:10 Labs: Urine 12/20/17 Range/Units 19:55 Urine Color Red A (Yellow) Urine Clarity Cloudy A (Clear) Urine pH 5.5 (5.0-8.0) pH Units Ur Specific [place] 1.023 (1.010-1.025) Urine Protein 100 H (Neg-Trace) mg/dL Urine Glucose (UA) Normal (Normal) mg/dL - ABG Interpretation ABG results: PT/INR, D-dimer PT 24.8 Seconds (9.4-12.1) H 12/20/17 10:51 Consult Discharge Plan - Plan Referrals: Cristiana Arreaga MD [Primary Care Provider] -
[2017-12-21] MEDS: Azithromycin 500 MG in D5% in Water 250 ML IVPB SCH (01:40)
[2017-12-21 03:42] LABS: Segmented Neutrophils % 85.2 %
[2017-12-21 03:43] LABS: Basophils % 0.2 %; Eosinophils % 0.1 %; Monocytes % 7.7 %
[2017-12-21 03:45] LABS: Basophils # 0.1 K/mcL (0.0-0.2); Hematocrit 32.4 % (35.3-44.9); Hemoglobin 10.9 g/dL (11.5-15.4); Immature Granulocytes % 1.7 % (0-4); Immature Platelets 1.5 % (1.1-6.1); Lymphocytes # 1.3 K/mcL (0.6-4.6); Lymphocytes % 5.1 %; Mean Corpuscular HGB Conc 33.6 g/dL (31.6-35.5); Mean Corpuscular Hemoglobin 31.8 pg (28.0-33.3); Mean Corpuscular Volume 94.5 fL (83.0-100.0); Mean Platelet Volume 9.6 fL (9.4-12.4); Monocytes # 1.9 K/mcL (0.0-1.3); Neutrophils # 21.2 K/mcL (1.6-8.9); Nucleated Red Blood Cells 0.2 /100 WBC (0); Platelet Count 144 K/mcL (140-400); Red Blood Count 3.43 M/mcL (3.82-4.97); Red Cell Distribution Width 16.4 % (11.5-14.5)
[2017-12-21 03:48] LABS: Calcium 8.3 mg/dL (8.6-10.3); Phosphorous 5.6 mg/dL (2.7-4.5)
[2017-12-21] MEDS: *HR* Heparin 5,000 UNIT/ML VIAL SQ SCH ×3 (04:06→20:21)
[2017-12-21 06:50] LABS: Platelet Estimate Normal (Normal); Toxic Granulation Present (Not Present)
[2017-12-21] MEDS ORDERED: *HR* Heparin 10,000 UNIT/10 ML VIAL IV PRN (07:40)
[2017-12-21] MEDS ORDERED: 0.9 % Sodium Chloride 1,000 ML PRIME SCH (07:45)
[2017-12-21] MEDS: cefTRIAXone 1,000 MG in Water for inj. (sterile) 20 ML 10 ML IVP SCH (08:33)
--- NOTE | 2017-12-21 08:47 | Nephrology Progress Note ---
Date of Encounter: 12/21/17 Time of Encounter: 08:43 - Assessment and Plan (1) YURI (acute kidney injury) Current Visit: Yes Status: Acute YURI and she was arranged for HD today. Will plan for back to back HD tomorrow as well. I noted that in the renal U/S report there was no visualization of a left kidney, so it appears this pt has a solitary kidney (however, also is the possibility that her significant obesity may have limited the retroperitoneal U/ S such that the left kidney was just not seen). I reviewed the sign-out/hand- off info from my colleague Dr. Garcia. Continue to follow a renal protective strategy: dose Rx by GFR, avoid NSAIDs, IV contrast and other nephrotoxins. Strict I/Os and daily weights to be collected. Will follow with you. Thank you. (2) Solitary kidney Current Visit: Yes Status: Acute The renal U/S did not visualize the left kidney. So I later opened the [employer] imaging software and viewed the CT abd/pelvis that was performed earlier in this hospitalization. Her right kidney appeared much larger than the left kidney, which appeared atrophic. So she may be functionally with a solitary kidney state, since she has an atrophy left kidney as seen on the CT abd from 12/19/17. (3) Anemia Current Visit: Yes Status: Acute As long as she is not loosing blood, the goal Hgb is 10-11 in the setting of CKD. Will monitor and may provide either IV iron and/or ALLEN at some point. Qualifiers: Anemia type: unspecified type Qualified Code(s): D64.9 - Anemia, unspecified (4) Morbid obesity with BMI of 60.0-69.9, adult Current Visit: Yes Status: Chronic According to some notes, her obesity has contributed to her largely being bed bound. See above regarding her obesity and the impact on the imaging. (5) Cirrhosis of liver Current Visit: Yes Status: Chronic Will monitor. Qualifiers: Hepatic cirrhosis type: other cirrhosis Qualified Code(s): K74.69 - Other cirrhosis of liver Subjective Principal diagnosis: YURI Interval history: Pt was seen and examined. Her old son was present and help relate most of the history. He reported that his mother has chronic edema and that her BPs are typically on the lower side. Today, she did not affirm N/V/D. Objective - Vital Signs Vital signs: Vital Signs Temp Pulse Resp BP Pulse Ox 12/21/17 06:37 97.7 F 77 14 97/54 91 12/21/17 05:00 97.8 F 74 16 110/65 87 12/21/17 00:00 97.9 F 74 16 96/47 97 12/20/17 20:00 98.3 F 78 16 98/60 98 12/20/17 14:41 97.8 F 71 14 94/57 95 12/20/17 10:10 97.8 F 73 15 96/69 99 Intake and Output 12/20/17 12/21/17 12/21/17 23:59 07:59 15:59 Intake Total 0 / 0 0 / 0 Output Total 0 / 0 Balance 0 / 0 0 / 0 Intake: Oral 0 / 0 0 / 0 Output: Catheter 0 / 0 Other: Meal Dinner Percent of Meal Consumed 0% Weight 149.3 kg Blood Glucose* 134 133 Patient Weight 12/21/17 23:59 Weight 149.3 kg - General Appearance General appearance: Present: well-developed, obese, chronically ill, frail EENT: Present: ATNC, PERRL (with racoon-like violacious circles around her eyes) , mucous membranes moist Neck: Present: supple Respiratory: Present: clear (but limited auscultation d/t her large body habitus ) Cardiology: Present: edema (1+ pretibial pitting edema bilaterally), regular rate, regular rhythm, normal S1, normal S2 Gastrointestinal: Present: normoactive bowel sounds, no tenderness, no guarding Integumentary: Present: no rash, warm and dry Additional Comments: She was slightly slow to respond in conversation. She moved all four extremities. Musculoskeletal: Present: no deformities, no erythema, no cyanosis, no clubbing Psychiatric: Present: cooperative - Lab 12/21/17 02:57 12/21/17 02:57 Most recent lab results Calcium 8.3 mg/dL (8.6-10.3) L 12/21/17 02:57 Phosphorus 5.6 mg/dL (2.7-4.5) H 12/21/17 02:57 Magnesium 1.9 mg/dL (1.6-2.6) 12/20/17 02:10 Urine Sodium 10.3 mEq/L 12/19/17 19:54 - Imaging Kidney/bladder ultrasound: report reviewed Consult Discharge Plan - Plan Referrals: Sarita Dunbar, FINANCE ADVISOR [Advanced Practice Nurse] - 12/31/17 2:00 pm
[2017-12-21 09:07] LABS: Hepatitis B Surface Antibody 0.49 mIU/mL; Hepatitis B Surface Antigen Nonreactive (Nonreactive)
[2017-12-21 09:09] LABS: Albumin 2.1 g/dL (3.5-5.7); Albumin/Globulin Ratio 0.5 (1.1-2.2); Bilirubin,Direct 2.8 mg/dL (0.0-0.2); Bilirubin,Indirect 2.4 mg/dL (0.0-1.2); Bilirubin,Total 5.2 mg/dL (0.3-1.0); Globulin 4.2 g/dL (2.4-3.5); Total Protein 6.3 g/dL (6.4-8.9)
--- NOTE | 2017-12-21 10:12 | Neurology Progress Note ---
Date of Encounter: 12/21/17 Time of Encounter: 10:10 Assessment and Plan (1) Generalized weakness Current Visit: Yes Status: Acute I suspect that this patient's generalized weakness is due to multiple nonneurologic factors. However she does have dysarthric speech and I would like to make sure that she has not had a cerebral infarct. I will obtain an MRI scan of the brain. Further recommendations will be made pending the MRI results. I did explain to her and her son that I am not convinced that she truly has multiple sclerosis. She had an MRI scan of the brain back in February 2012 which did not reveal evidence of demyelinating disease. Further recommendations will be made pending the MRI results. Subjective Interval history: Chart was reviewed, patient was seen and examined. Her son is present at the bedside. She had an uneventful night. She remembers me from yesterday. She is more alert today however still has some confusion and dysarthric speech. She denies any headache, or paresthesias. Her son informs me that apparently she was told she had MS 25 years or so ago however she is never started on any medications to treat this. Objective - Constitutional Vitals: Temp Pulse Resp BP Pulse Ox 97.7 F 77 14 97/54 91 12/21/17 06:37 12/21/17 06:37 12/21/17 06:37 12/21/17 06:37 12/21/17 06:37 - Neurological Exam Motor Examination: Present: other (Patient has 4/5 strength of both upper extremities. Strength of the lower extremities is 2-3/5. She dorsiflexes the toes with good power bilaterally.) Mental Status Examination: Present: awake, oriented to person, lethargic. Absent: follows commands appropriately (Patient follows some commands, however his dyspraxic with others.) Cranial nerve examination: Present: PERRL, EOMI, corneal reflexes brisk symmetrically, sensory to face intact, mastication intact, no facial asymmetry is present. Absent: no dysarthria (Speech is dysarthric.) Results - Laboratory Findings CBC and BMP: 12/21/17 02:57 12/21/17 02:57 Abnormal lab findings: Abnormal lab results WBC 24.9 K/mcL (4.3-11.1) H 12/21/17 02:57 RBC 3.43 M/mcL (3.82-4.97) L 12/21/17 02:57 Hgb 10.9 g/dL (11.5-15.4) L 12/21/17 02:57 Hct 32.4 % (35.3-44.9) L 12/21/17 02:57 RDW 16.4 % (11.5-14.5) H 12/21/17 02:57 Neutrophils # 21.2 K/mcL (1.6-8.9) H 12/21/17 02:57 Monocytes # 1.9 K/mcL (0.0-1.3) H 12/21/17 02:57 Nucleated RBCs/100 WBC 0.2 /100 WBC (0) H 12/21/17 02:57 Toxic Granulation Present (Not Present) A 12/21/17 02:57 PT 24.8 Seconds (9.4-12.1) H 12/20/17 10:51 Sodium 130 mEq/L (136-145) L 12/21/17 02:57 Chloride 92 mEq/L (98-107) L 12/21/17 02:57 BUN 82 mg/dL (8-23) H 12/21/17 02:57 Creatinine 6.48 mg/dL (0.60-1.20) H 12/21/17 02:57 Est GFR ( Amer) 8 (> 60) L 12/21/17 02:57 Est GFR (Non-Af Amer) 6 (> 60) L 12/21/17 02:57 Glucose 151 mg/dL (70-105) H 12/21/17 02:57 POC Glucose 133 (58-89) H 12/21/17 06:42 Lactic Acid 2.8 mmol/L (0.5-2.2) H 12/20/17 13:30 Uric Acid 12.0 mg/dL (2.3-7.6) H 12/21/17 02:57 Calcium 8.3 mg/dL (8.6-10.3) L 12/21/17 02:57 Phosphorus 5.6 mg/dL (2.7-4.5) H 12/21/17 02:57 % Saturation 82 % (15-50) H 12/20/17 11:05 Transferrin 80 mg/dL (203-362) L 12/20/17 11:05 Total Bilirubin 5.2 mg/dL (0.3-1.0) H 12/21/17 02:57 Direct Bilirubin 2.8 mg/dL (0.0-0.2) H 12/21/17 02:57 Indirect Bilirubin 2.4 mg/dL (0.0-1.2) H 12/21/17 02:57 Creatine Kinase 19 Units/L (30-223) L 12/19/17 22:37 Troponin I 0.07 ng/mL (< 0.04) H* 12/19/17 19:13 B-Natriuretic Peptide 989 pg/mL (Less than 100) H 12/20/17 02:10 Serum Total Protein 6.3 g/dL (6.4-8.9) L 12/21/17 02:57 Albumin 2.1 g/dL (3.5-5.7) L 12/21/17 02:57 Globulin 4.2 g/dL (2.4-3.5) H 12/21/17 02:57 Albumin/Globulin Ratio 0.5 (1.1-2.2) L 12/21/17 02:57 HDL Cholesterol 5 mg/dL (40-59) L 12/20/17 02:10 Cholesterol/HDL Ratio 12.2 (0-4.9) H 12/20/17 02:10 Ur Specimen Adequacy See below A 12/19/17 19:05 Urine Color Red (Yellow) A 12/20/17 19:55 Urine Clarity Cloudy (Clear) A 12/20/17 19:55 Urine Protein 100 mg/dL (Neg-Trace) H 12/20/17 19:55 Urine Ketones Trace mg/dL (Negative) H 12/20/17 19:55 Urine Blood Large (Negative) H 12/20/17 19:55 Urine Nitrite Positive (Negative) A 12/20/17 19:55 Urine Bilirubin Large (Negative) H 12/20/17 19:55 Ur Leukocyte Esterase Small (Negative) H 12/20/17 19:55 Urine Microscopic RBC 5-15 per hpf (0-3) H 12/20/17 19:55 Urine Microscopic WBC 3-5 per hpf (0-3) H 12/20/17 19:55 Ur Squamous Epith Cells Many per lpf (None-Few) H 12/19/17 19:05 Amorphous Sediment Many (Few) H 12/19/17 19:05 Urine Yeast Many per hpf (None Seen) H 12/20/17 19:55 Ur Culture Indicated? YES (NO) A 12/20/17 19:55 Consult Discharge Plan - Plan Referrals: Sarita Dunbar, FREIGHT LOADING SUPERVISOR [Advanced Practice Nurse] - 12/31/17 2:00 pm
[2017-12-21] MEDS ORDERED: *HR* Heparin 5,000 UNIT/ML VIAL ONE ×2 (11:07→11:08)
--- NOTE | 2017-12-21 11:27 | IR Procedure Note ---
Date of procedure: 12/21/17 Consent Obtained: Written consent Timeout: Correct patient and procedure verified, Correct site verified, Time out performed, Skin prep completed Local anesthetic: Lidocaine 1% Indications: YURI Procedure Performed: Temp HD catheter placement Was there an bioinformatics assistant present: No Site/Technique: RIJV used for access Results/Findings: 20cm cath placed through RIJV. Tolerated well. Estimated blood loss (cc): 2 Complications: None; Tolerated procedure well Post Procedure Treatment Plan: Monitoring in room. CXR ordered. Specimen: N/a
[2017-12-21 12:07] LABS: Hepatitis A Antibody IgM Nonreactive (Nonreactive); Hepatitis B Core IgM Nonreactive (Nonreactive); Hepatitis B Surface Antigen Nonreactive (Nonreactive); Hepatitis C Virus Antibody Nonreactive (Nonreactive)
[2017-12-21] MEDS: 0.9 % Sodium Chloride 1,000 ML IVC SCH ×2 (12:55)
[2017-12-21] MEDS ORDERED: 0.9 % Sodium Chloride 1,000 ML ONE (14:16)
[2017-12-21] MEDS ORDERED: Albumin 25% 25gram/100mL 25 GM/100 ML IV.SOLN IVPB ONE (15:20)
[2017-12-21] MEDS ORDERED: Albumin 25% 12.5gm/50mL 25.0 GM/100 ML IV.SOLN ONE (15:21)
[2017-12-21] MEDS: Acetaminophen 325 MG TABLET PO PRN (20:24)
[2017-12-21] MEDS: 0.9 % Sodium Chloride 250 ML IVC PRN (20:55)
--- NOTE | 2017-12-21 21:20 | Event Note ---
Date of Encounter: 12/21/17 Time of Encounter: 19:29 Rapid response called after patient got confused and removed her newly placed temporary HD catheter. She had bright red blood seen around the insertion area. Nursing and staff were able to control bleeding without issue. Patient vitals showed SBP rangin 80s-90s. Patient was awake and alert, responsive to commands. She recently came back from dialysis and daughter at bedside states her blood pressure can run low afterwords. We have monitored vitals and there did not seem to be acute changes. We will monitor her with vitals and check a CBC in one hour. Currently bleeding at cath site has stopped and is bandaged with pressure dressing.
--- NOTE | 2017-12-21 21:45 | Internal Med Progress Note ---
Date of Encounter: 12/21/17 Time of Encounter: 21:42 - Assessment and plan (1) Acute renal failure Current Visit: Yes Status: Acute Assessment and plan: Worsening. Cr = 6.48. UOP poor per nursing staff. Restart IVF gently at 50 ml /hr. Monitor UOP. Nephrology consulted; appreciate input. Plan for dialysis today. Avoid nephrotoxins. Recheck BMP in AM. Qualifiers: Acute renal failure type: unspecified Qualified Code(s): N17.9 - Acute kidney failure, unspecified (2) Dehydration Current Visit: Yes Status: Acute Assessment and plan: Likely secondary to N/V. IVF hydration restarted today as per above. Recheck BMP in AM. (3) Leukocytosis Current Visit: Yes Status: Acute Assessment and plan: Improved. WBC = 24.9. Possibility of pneumonia; likely has UTI. Continue rocephin and azithromycin at this time. Qualifiers: Leukocytosis type: bandemia Qualified Code(s): D72.825 - Bandemia (4) Abdominal pain Current Visit: Yes Status: Resolved Assessment and plan: Resolved at this time. This seems to be a subacute issue for her. GI consulted ; appreciate input. Plan for scopes when medically stable. Will monitor for recurrence. Qualifiers: Abdominal location: generalized Qualified Code(s): R10.84 - Generalized abdominal pain (5) Diarrhea Current Visit: Yes Status: Acute Assessment and plan: Improve. GI consulted; appreciate input. Will need EGD and colonoscopy when stable. Liver U/S with mildly echogenic liver suggestive of heapatic steatosis , otherwise normal. Address dehydration as per above. Qualifiers: Diarrhea type: unspecified type Qualified Code(s): R19.7 - Diarrhea, unspecified (6) Generalized weakness Current Visit: Yes Status: Acute Assessment and plan: Patient with generalized weakness and unable to walk or ambulate. Will address acute issues as per above and get PT/OT consult when medically stable. History of MS, as per below, and this may be contributing, however full extent of disease and history unknown. Neurology consulted; appreciate input. Brain MRI ordered to rule out stroke. (7) Unable to ambulate Current Visit: Yes Status: Chronic (8) Multiple sclerosis Current Visit: Yes Status: Chronic Assessment and plan: Neurology consulted; appreciate input. They suspect that she may not have this. Likely not a good candidate for disease modifying therapy. (9) Hypokalemia Current Visit: Yes Status: Resolved Assessment and plan: Resolved. K = 4.0. Recheck BMP in AM. - Time Spent With Patient Greater than 35 minutes - Subjective Interval history: Patient had no acute events overnight. She states that she is feeling better this AM. She is fully alert and oriented and communicates appropriately and with understanding. She denies SOB, chest pain, fever, or chills. She has no new complaints. Nursing staff reports that UOP still minimal. PO intake somewhat better. She denies any further N/V. - Constitutional Vitals: Temp Pulse Resp BP Pulse Ox 97.5 F L 66 17 93/68 97 12/21/17 20:00 12/21/17 20:00 12/21/17 20:00 12/21/17 20:00 12/21/17 20:00 General appearance: Present: A&O X 3, morbidly obese, pleasant, no acute distress, answers questions appropriately - Respiratory Respiratory exam: Present: CTAB. Absent: accessory muscle use, rales, rhonchi, wheezes Additional comments: Normal WOB - Cardiovascular Cardiovascular exam: Present: RRR, +S1, +S2. Absent: diastolic murmur, gallop, rubs, systolic murmur Additional comments: 2+ pitting BUE and BLE edema - GI/Abdominal GI/Abdominal exam: Present: normal bowel sounds, soft. Absent: distended, hepatomegaly, mass, splenomegaly, tenderness - Psychiatric Psychiatric exam: Present: normal affect, normal mood. Absent: anxious, depressed - Skin Skin exam: Present: dry, intact, warm. Absent: cyanosis, rash Internal Medicine: Result - Labs CBC & Chem 7: 12/21/17 02:57 12/21/17 02:57 Labs: Short CBC 12/21/17 Range/Units 02:57 WBC 24.9 H (4.3-11.1) K/mcL Hgb 10.9 L (11.5-15.4) g/dL Hct 32.4 L (35.3-44.9) % Plt Count 144 (140-400) K/mcL Neutrophils # 21.2 H (1.6-8.9) K/mcL BMP 12/21/17 02:57 Sodium 130 L Potassium 4.0 Chloride 92 L Carbon Dioxide 23 BUN 82 H Creatinine 6.48 H Glucose 151 H Calcium 8.3 L Liver Function 12/21/17 Range/Units 02:57 Total Bilirubin 5.2 H (0.3-1.0) mg/dL Direct Bilirubin 2.8 H (0.0-0.2) mg/dL AST 33 (13-39) Units/L ALT 12 (7-52) Units/L Alkaline Phosphatase 73 (34-104) Units/L Albumin 2.1 L (3.5-5.7) g/dL - ABG Interpretation ABG results: PT/INR, D-dimer PT 24.8 Seconds (9.4-12.1) H 12/20/17 10:51 - Impressions Impressions Liver Ultrasound 12/20/17 20:00 IMPRESSION: Mildly echogenic liver suggestive of hepatic steatosis. Common bile duct is within normal limits. D/ / 12/20/2017 21:36:24 Pb Wang MD / [facility] Interpreting Provider: Pb Wang MD Retroperitoneum Ultrasound 12/20/17 20:00 IMPRESSION: 1. Normal right kidney. No right hydronephrosis. 2. Nonvisualized left kidney. 3. Nonvisualized urinary bladder. 4. Moderate amount of ascites throughout the abdomen. D/ / Magno Xiao / Magno Xiao Interpreting Provider: Magno Xiao Insertion Non-Tunneled Catheter 12/21/17 00:00 IMPRESSION: Successful ultrasound-guided placement of a bedside temporary hemodialysis catheter, which is in appropriate position. D/ / Jay Rivera MD / Jay Rivera MD Interpreting Provider: Jay Rivera MD Brain MRI 12/21/17 10:17 IMPRESSION: Moderate chronic small vessel ischemic changes. No acute brain parenchymal abnormality. D/ / 12/21/2017 12:51:16 Iris Faulkner MD / [email or web address] Interpreting Provider: Iris Faulkner MD Chest X-Ray 12/21/17 11:12 IMPRESSION: Interval placement of a temporary hemodialysis catheter, with tip in appropriate position. Chest is a otherwise similar in appearance. No pneumothorax. D/ / Jay Rivera MD / Jay Rivera MD Interpreting Provider: Jay Rivera MD Consult Discharge Plan - Plan Referrals: Sarita Dunbar, POLICE LIAISON OFFICER [Advanced Practice Nurse] - 12/31/17 2:00 pm
[2017-12-22] MEDS: 0.9 % Sodium Chloride 250 ML IVC PRN (00:18)
[2017-12-22] MEDS: Azithromycin 500 MG in D5% in Water 250 ML IVPB SCH (01:33)
--- NOTE | 2017-12-22 01:44 | Event Note ---
Date of Encounter: 12/21/17 Time of Encounter: 23:30 Called by patient's nurse regarding patient's hypotension. Pt. had temporary dialysis catheter placed today by IR and received first dialysis. Following dialysis, pt. pulled out catheter and rapid response was called d/t bleeding from site. Pts. BP has remained low following the incident and urinary output has been scant and very dark. Orders were in place for [address] Garcia for hypotension, so patient received two boluses. However, BP remained in 70's/30's. Pt. is also experiencing AMS which led to her removing temporary catheter earlier today. Concern is for continuing hypotension, increased fluid boluses to attempt to raise BP, and scant urinary output. Following second bolus , BP 94/47. Order placed to transfer patient to ICU for closer monitoring.
[2017-12-22] MEDS: 0.9 % Sodium Chloride 1,000 ML IVC SCH (02:30)
[2017-12-22] MEDS ORDERED: 0.9 % Sodium Chloride 500 ML IVC ONE (03:14)
[2017-12-22] MEDS ORDERED: 0.9 % Sodium Chloride 500 ML ONE ×2 (03:16→13:28)
[2017-12-22 03:18] LABS: Basophils % 0.1 %; Mean Platelet Volume 9.6 fL (9.4-12.4)
[2017-12-22 03:20] LABS: Eosinophils % 0.1 %; Hematocrit 28.1 % (35.3-44.9); Immature Granulocytes % 1.9 % (0-4); Immature Platelets 2.5 % (1.1-6.1); Lymphocytes % 4.1 %; Mean Corpuscular Hemoglobin 31.9 pg (28.0-33.3); Mean Corpuscular Volume 99.6 fL (83.0-100.0); Neutrophils # 18.2 K/mcL (1.6-8.9); Nucleated Red Blood Cells 0.4 /100 WBC (0); Red Blood Count 2.82 M/mcL (3.82-4.97); Red Cell Distribution Width 16.4 % (11.5-14.5); Segmented Neutrophils % 88.8 %
[2017-12-22 03:37] LABS: Calcium 8.3 mg/dL (8.6-10.3); Potassium 4.1 mEq/L (3.5-5.1)
[2017-12-22 03:41] LABS: Lymphocytes # 0.8 K/mcL (0.6-4.6); Platelet Count 81 K/mcL (140-400)
[2017-12-22 03:43] LABS: Anisocytosis 1+ (Not Present); Platelet Estimate Decreased (Normal); Polychromasia 1+ (Not Present)
[2017-12-22 06:28] LABS: Alpha 2 Globulin (PEP) 0.57 g/dL (0.48-1.05); Beta Globulin (PEP) 1.09 g/dL (0.48-1.10)
[2017-12-22] MEDS: *HR* Heparin 5,000 UNIT/ML VIAL SQ SCH ×3 (06:35→22:16)
[2017-12-22] MEDS ORDERED: Dextrose Gel 15 GM/37.5 ML TUBE PO PRN ×2 (06:57)
[2017-12-22] MEDS ORDERED: D5% in Water 1,000 ML IVC PRN (06:57)
--- NOTE | 2017-12-22 07:51 | Nephrology Progress Note ---
Date of Encounter: 12/22/17 Time of Encounter: 07:47 - Assessment and Plan (1) YURI (acute kidney injury) Current Visit: Yes Status: Acute Please note that this pt is known to be bed-bound and has cirrhosis of the liver : both classic chronic conditions that lead to chronically low BP. I read the event notes overnight: the pt was give NS 250mL boluses using the orders that were intended just for intradialytic hypotension while on dialysis (not to be used for standing orders on the floor). I've stopped the dialysis orders of NS 250mL boluses. Since she does not have a dialysis catheter, at this point, and since her last INR was >2, plus her severe morbid obesity (BMI 64 and large pannus), this will make placing another temporary HD catheter very challenging. On exam, her very large pannus would likely inc the risk for CLABSI. INR rising. I paged and spoke with on-call IR: appreciate their assistance today with replacing the temporary HD catheter. Due to her ongoing relatively low BPs, I suspect that routine HD may exacerbate her hypotension. So will arrange for Amber today with CVVHDF at 4K/2.5Ca on dialysate and replacement fluid at 1250mL/hr with a BFR of 200 and initial UF of 0, to be slowly uptitrated. Discussed with the DAIRY CATTLE FARMER and the hospitalist earlier today. Will continue to closely follow with you. Continue to follow a renal protective strategy: dose Rx by GFR, avoid NSAIDs, IV contrast and other nephrotoxins. Strict I/Os and daily weights to be collected. [facility] 45 min including exam, logistics, documentation, MDM of Amber. Will follow with you. Thank you. (2) Solitary kidney Current Visit: Yes Status: Acute The renal U/S did not visualize the left kidney. So I later opened the [employer] imaging software and viewed the CT abd/pelvis that was performed earlier in this hospitalization. Her right kidney appeared much larger than the left kidney, which appeared atrophic. So she may be functionally with a solitary kidney state, since she has an atrophy left kidney as seen on the CT abd from 12/19/17. (3) Anemia Current Visit: Yes Status: Acute As long as she is not loosing blood, the goal Hgb is 10-11 in the setting of CKD. Will monitor and may provide either IV iron and/or ALLEN at some point. Qualifiers: Anemia type: unspecified type Qualified Code(s): D64.9 - Anemia, unspecified (4) Morbid obesity with BMI of 60.0-69.9, adult Current Visit: Yes Status: Chronic According to some notes, her obesity has contributed to her largely being bed bound. See above regarding her obesity and the impact on the imaging. (5) Cirrhosis of liver Current Visit: Yes Status: Chronic Will monitor. Cannot rule out HRS, but this is a diagnosis of exclusion. If she were to need buttermaker HD, this would greatly impact her candidacy for care home HD. Agree with Midodrine. I may add Albumin as well. Qualifiers: Hepatic cirrhosis type: other cirrhosis Qualified Code(s): K74.69 - Other cirrhosis of liver Subjective Principal diagnosis: YURI Interval history: Pt was seen and examined. Transferred to the ICU last night with bleeding, hypotension and she had removed her newly placed temporary HD catheter. Objective - Vital Signs Vital signs: Vital Signs Temp Pulse Resp BP Pulse Ox 12/22/17 07:25 98 12/22/17 07:00 68 14 101/63 98 12/22/17 06:16 64 12/22/17 06:00 71 10 89/55 95 12/22/17 05:00 67 12 84/40 97 12/22/17 04:38 97.7 F 12/22/17 04:00 71 12 87/50 95 12/22/17 03:00 64 14 72/40 96 12/22/17 02:16 64 12/22/17 02:00 97.6 F 65 12 66/49 97 12/22/17 00:35 97.8 F 79 18 94/47 98 12/21/17 20:21 97 12/21/17 20:00 97.5 F L 66 17 93/68 97 12/21/17 18:00 97 12/21/17 17:15 97.7 F 16 127/63 12/21/17 17:05 99/77 12/21/17 16:50 94/86 12/21/17 16:35 96/72 12/21/17 16:20 90/55 12/21/17 16:05 91/57 12/21/17 15:50 92/59 12/21/17 15:35 93/46 12/21/17 15:20 88/50 03/16/18 15:05 97.5 F L 16 106/47 12/21/17 14:57 97.6 F 72 15 105/62 95 12/21/17 10:44 97.7 F 76 14 99/59 94 12/21/17 08:34 92 Intake and Output 12/21/17 12/21/17 12/22/17 15:59 23:59 07:59 Intake Total 720 / 720 270 / 270 2009 Output Total 2675 / 2675 125 / 125 Balance 720 / 720 -2405 / -2405 1885 / 1885 Intake: IV Fluids 250 / 250 2009 0.9 % Sodium Chloride 250 ML @ 250 / 250 1250 / 1250 937.5 mls/hr IVC .Q16M PRN Rx#: [id number] Rocephin 1,000 MG In Water for inj. (sterile) 10 ML @ 300 mls/ hr IVP DAILY KRISHNA Rx#:[id number] ALBURX 5% 12.5 gm In 250 ml @ 250 / 250 60 mls/hr IVPB ONCE ONE Rx#: [id number] Zithromax 500 mg In Dextrose 5% 250 / 250 250 ML @ 252 mls/hr IVPB Q24H KRISHNA Rx#:[id number] Oral 120 / 120 20 / 20 0 / 0 Intake, Rinseback and Flushes 600 / 600 Output: Urine 0 / 0 Total Dialysis (HD) Output 2600 / 2600 Catheter 75 / 75 125 / 125 Other: Meal Lunch Dinner Percent of Meal Consumed 5% 25% Blood Glucose* 135 141 156 Hemodialysis Net Fluid Removed 981 2000 (mL) - General Appearance General appearance: Present: appears started age, obese, moderate distress, frail EENT: Present: ATNC, mucous membranes dry Neck: Present: supple Additional Comments: Right anterior triangle of the neck with pressure dressing in place Respiratory: Present: course breath sounds (but limited d/t her morbid obesity) Cardiology: Present: edema (1+ pitting pretibial edema bilaterally), regular rate, regular rhythm, normal S1, normal S2 Gastrointestinal: Present: normoactive bowel sounds, no tenderness, obese (very large pannus) Integumentary: Present: warm and dry Neurologic: Present: confused, disoriented Musculoskeletal: Present: no erythema, no cyanosis Psychiatric: Present: cooperative - Lab 12/22/17 03:07 12/22/17 03:07 Most recent lab results Calcium 8.3 mg/dL (8.6-10.3) L 12/22/17 03:07 Phosphorus 5.6 mg/dL (2.7-4.5) H 12/21/17 02:57 Magnesium 1.9 mg/dL (1.6-2.6) 12/20/17 02:10 Urine Sodium 10.3 mEq/L 12/19/17 19:54 Consult Discharge Plan - Plan Referrals: Sarita Dunbar, TERRAZZO HELPER [Advanced Practice Nurse] - 12/31/17 2:00 pm
[2017-12-22 08:34] LABS: INR 2.9; Prothrombin Time 31.6 Seconds (9.4-12.1)
[2017-12-22] MEDS: cefTRIAXone 1,000 MG in Water for inj. (sterile) 20 ML 10 ML IVP SCH (08:58)
[2017-12-22] MEDS ORDERED: Calcium Gluconate 2,000 MG in 0.9 % Sodium Chloride 100 ML IVPB PRN (09:56)
[2017-12-22] MEDS ORDERED: *HR* Heparin 5,000 UNIT/ML VIAL IV PRN (09:56)
[2017-12-22] MEDS ORDERED: Calcium Chloride 4,000 MG in 0.9 % Sodium Chloride 1,000 ML CRRT SCH (10:00)
[2017-12-22] MEDS ORDERED: 0.9 % Sodium Chloride 1,000 ML PRIME SCH (10:00)
[2017-12-22 11:28] LABS: VBG Ionized Calcium 0.98 mmol/L (1.15-1.35)
--- NOTE | 2017-12-22 11:55 | IR Procedure Note ---
Date of procedure: 12/22/17 Consent Obtained: Verbal consent, Written consent Timeout: Correct patient and procedure verified, Correct site verified, Time out performed, Skin prep completed Local anesthetic: Lidocaine 1% Indications: Renal failure and hypotension Procedure Performed: Temp HD and central line placement Was there an pediatric physician assistant present: No Site/Technique: Right IJ temp HD and central line placement Results/Findings: Patent right IJ vein Estimated blood loss (cc): 3 Complications: None; Tolerated procedure well Post Procedure Treatment Plan: Post procedure CXR pending Specimen: None
[2017-12-22] MEDS: Insulin LISPRO 300 UNITS/3 ML VIAL SQ SCH ×2 (14:00→19:46)
[2017-12-22] MEDS: PrismaSATE BGK 4/2.5 5,000 ML CRRT SCH ×6 (14:00→22:16)
[2017-12-22] MEDS: Norepinephrine 4 MG in D5% in Water 250 ML IVC SCH ×2 (17:08→20:38)
[2017-12-23] MEDS: Azithromycin 500 MG in D5% in Water 250 ML IVPB SCH (00:39)
[2017-12-23] MEDS: Norepinephrine 4 MG in D5% in Water 250 ML IVC SCH ×2 (00:41→05:34)
[2017-12-23] MEDS: Insulin LISPRO 300 UNITS/3 ML VIAL SQ SCH ×4 (00:43→18:05)
--- NOTE | 2017-12-23 00:54 | Internal Med Progress Note ---
Date of Encounter: 12/23/17 Time of Encounter: 09:07 - Assessment and plan (1) Acute renal failure Current Visit: Yes Status: Acute Assessment and plan: Minimally improved. Cr = . UOP remains poor per nursing staff. Nephrology consulted; appreciate input. I spoke with health and human performance professor today; he plans to reinsert dialysis catheter and start Amber given her low BP. Continue gentle IV hydration per nephrology. Monitor UOP. Avoid nephrotoxins. Recheck BMP in AM. Qualifiers: Acute renal failure type: unspecified Qualified Code(s): N17.9 - Acute kidney failure, unspecified (2) Dehydration Current Visit: Yes Status: Acute Assessment and plan: Likely secondary to N/V. IVF hydration per nephrology as per above. Recheck BMP in AM. (3) Leukocytosis Current Visit: Yes Status: Acute Assessment and plan: Improved. WBC = 21.5. Possibility of pneumonia; likely has UTI. Continue rocephin and azithromycin at this time as per below. Qualifiers: Leukocytosis type: bandemia Qualified Code(s): D72.825 - Bandemia (4) Abdominal pain Current Visit: Yes Status: Resolved Assessment and plan: Resolved at this time. This seems to be a subacute issue for her. GI consulted ; appreciate input. Plan for scopes when medically stable. Will monitor for recurrence. Qualifiers: Abdominal location: generalized Qualified Code(s): R10.84 - Generalized abdominal pain (5) Diarrhea Current Visit: Yes Status: Acute Assessment and plan: Improved. GI consulted; appreciate input. Will need EGD and colonoscopy when stable. Liver U/S with mildly echogenic liver suggestive of heapatic steatosis , otherwise normal. Address dehydration as per above. Qualifiers: Diarrhea type: unspecified type Qualified Code(s): R19.7 - Diarrhea, unspecified (6) Generalized weakness Current Visit: Yes Status: Acute Assessment and plan: Patient with generalized weakness and unable to walk or ambulate. Will address acute issues and get PT/OT consult when medically stable. History of MS, as per below, and this may be contributing, however full extent of disease and history unknown. Neurology consulted; appreciate input. Brain MRI with moderate chronic small vessel ischemic changes; no acute process. (7) Unable to ambulate Current Visit: Yes Status: Chronic (8) Multiple sclerosis Current Visit: Yes Status: Chronic Assessment and plan: Neurology consulted; appreciate input. They suspect that she may not have this. Likely not a good candidate for disease modifying therapy. (9) Hypokalemia Current Visit: Yes Status: Resolved Assessment and plan: Resolved. K = 4.1. Recheck BMP in AM. (10) Acute cystitis with hematuria Current Visit: Yes Status: Acute Assessment and plan: Continue rocephin and azithromycin. Follow up on urine culture. (11) Community acquired pneumonia Current Visit: Yes Status: Acute Assessment and plan: Respiratory status stable. Continue rocephin and azithromycin. Qualifiers: Laterality: left Lung location: lower lobe of lung Qualified Code(s): J18.1 - Lobar pneumonia, unspecified organism - Time Spent With Patient less than 15 minutes - Subjective Interval history: Patient experienced worsening hypotension overnight. She was transferred to ICU for closer monitoring as this was in the picture of some worsening mental status. This morning, patient states that she is doing well. She is alert and appropriately conversive, but having some difficulty word finding and recall. She denies SOB, chest pain, fever, or chills. She has no new complaints. Nursing staff reports that UOP still minimal. - Constitutional Vitals: Temp Pulse Resp BP Pulse Ox 96.7 F L 63 16 93/54 99 12/22/17 21:00 12/23/17 00:00 12/23/17 00:00 12/23/17 00:00 12/23/17 00:00 General appearance: Present: A&O X 3, morbidly obese, pleasant, no acute distress, answers questions appropriately - Respiratory Respiratory exam: Present: CTAB. Absent: accessory muscle use, rales, rhonchi, wheezes Additional comments: Normal WOB - Cardiovascular Cardiovascular exam: Present: RRR, +S1, +S2. Absent: diastolic murmur, gallop, rubs, systolic murmur Additional comments: 2+ pitting BUE and BLE edema - GI/Abdominal GI/Abdominal exam: Present: normal bowel sounds, soft. Absent: distended, hepatomegaly, mass, splenomegaly, tenderness - Psychiatric Psychiatric exam: Present: normal affect, normal mood. Absent: anxious, depressed - Skin Skin exam: Present: dry, intact, warm. Absent: cyanosis, rash Internal Medicine: Result - Labs CBC & Chem 7: 12/23/17 03:35 12/23/17 03:35 Labs: Short CBC 12/22/17 Range/Units 03:07 WBC 20.5 H (4.3-11.1) K/mcL Hgb 9.0 L D (11.5-15.4) g/dL Hct 28.1 L (35.3-44.9) % Plt Count 81 L (140-400) K/mcL Neutrophils # 18.2 H (1.6-8.9) K/mcL BMP 12/22/17 03:07 Sodium 130 L Potassium 4.1 Chloride 95 L Carbon Dioxide 23 BUN 75 H Creatinine 5.92 H Glucose 166 H Calcium 8.3 L - ABG Interpretation ABG results: PT/INR, D-dimer PT 31.6 Seconds (9.4-12.1) H 12/22/17 08:19 - Impressions Impressions Guidance Ultrasound 12/22/17 00:00 IMPRESSION: Ultrasound-guided placement of a temporary HD catheter and central line as above. No immediate complications. D/ / Renzo Felipe MD / Renzo Felipe MD Interpreting Provider: Renzo Felipe MD Guidance Ultrasound 12/22/17 00:00 IMPRESSION: Ultrasound-guided placement of a temporary HD catheter and central line as above. No immediate complications. D/ / Renzo Felipe MD / Renzo Felipe MD Interpreting Provider: Renzo Felipe MD Insertion Non-Tunneled Catheter 12/22/17 00:00 IMPRESSION: Ultrasound-guided placement of a temporary HD catheter and central line as above. No immediate complications. D/ / Renzo Felipe MD / Renzo Felipe MD Interpreting Provider: Renzo Felipe MD Insertion Non-Tunneled Catheter 12/22/17 00:00 IMPRESSION: Ultrasound-guided placement of a temporary HD catheter and central line as above. No immediate complications. D/ / Renzo Felipe MD / Renzo Felipe MD Interpreting Provider: Renzo Felipe MD Chest X-Ray 12/22/17 11:53 IMPRESSION: 1. Right jugular central venous line in place terminating in the right atrium 2. Right-sided hemodialysis catheter in place from right jugular approach terminating near the junction of the SVC and the right atrium 3. Evidence for cardiomegaly with pulmonary vascular congestion and edema 4. No pneumothorax D/ / Cedrick Shah MD / Cedrick Shah MD Interpreting Provider: Cedrick Shah MD Consult Discharge Plan - Plan Referrals: Sarita Dunbar, GUILLOTINE TRIMMER [Advanced Practice Nurse] - 12/31/17 2:00 pm
[2017-12-23] MEDS: PrismaSATE BGK 4/2.5 5,000 ML CRRT SCH ×10 (02:27→22:49)
[2017-12-23 04:01] LABS: Basophils % 0.2 %; Hematocrit 31.1 % (35.3-44.9); Hemoglobin 9.8 g/dL (11.5-15.4); Immature Granulocytes % 4.7 % (0-4); Lymphocytes # 0.9 K/mcL (0.6-4.6); Lymphocytes % 4.4 %; Mean Corpuscular HGB Conc 31.5 g/dL (31.6-35.5); Mean Corpuscular Hemoglobin 31.8 pg (28.0-33.3); Mean Platelet Volume 9.4 fL (9.4-12.4); Monocytes # 1.1 K/mcL (0.0-1.3); Monocytes % 5.2 %; Neutrophils # 18.4 K/mcL (1.6-8.9); Nucleated Red Blood Cells 1.4 /100 WBC (0); Platelet Count 129 K/mcL (140-400); Red Blood Count 3.08 M/mcL (3.82-4.97); Red Cell Distribution Width 17.2 % (11.5-14.5); Segmented Neutrophils % 85.5 %
[2017-12-23 04:23] LABS: Albumin 2.6 g/dL (3.5-5.7); Albumin/Globulin Ratio 0.6 (1.1-2.2); Bilirubin,Total 9.2 mg/dL (0.3-1.0); Calcium 8.1 mg/dL (8.6-10.3); Globulin 4.1 g/dL (2.4-3.5); Potassium 4.1 mEq/L (3.5-5.1); Total Protein 6.7 g/dL (6.4-8.9)
[2017-12-23] MEDS: *HR* Heparin 5,000 UNIT/ML VIAL SQ SCH ×3 (06:28→22:09)
[2017-12-23 08:39] LABS: Estimated Average Glucose 85 mg/dl; Hemoglobin A1C 4.6 %
[2017-12-23] MEDS: Norepinephrine 8 MG in D5% in Water 500 ML IVC SCH ×2 (09:00→16:19)
[2017-12-23] MEDS: cefTRIAXone 1,000 MG in Water for inj. (sterile) 20 ML 10 ML IVP SCH (09:20)
--- NOTE | 2017-12-23 10:03 | Internal Med Progress Note ---
Date of Encounter: 12/23/17 Time of Encounter: 10:01 - Assessment and plan (1) Acute renal failure Current Visit: Yes Status: Acute Assessment and plan: Improved. Cr = 3.69. UOP improving. Nephrology consulted; appreciate input. On Amber at this time. Continue gentle IV hydration per nephrology. Monitor UOP. Avoid nephrotoxins. Recheck BMP in AM. Qualifiers: Acute renal failure type: unspecified Qualified Code(s): N17.9 - Acute kidney failure, unspecified (2) Dehydration Current Visit: Yes Status: Acute Assessment and plan: Likely secondary to N/V. IVF hydration per nephrology as per above. Recheck BMP in AM. (3) Leukocytosis Current Visit: Yes Status: Acute Assessment and plan: Improved. WBC = 21.5. Possibility of pneumonia; likely has UTI. Continue rocephin and azithromycin at this time as per below. Qualifiers: Leukocytosis type: bandemia Qualified Code(s): D72.825 - Bandemia (4) Abdominal pain Current Visit: Yes Status: Resolved Assessment and plan: Resolved at this time. This seems to be a subacute issue for her. GI consulted ; appreciate input. Plan for scopes when medically stable. Will monitor for recurrence. Qualifiers: Abdominal location: generalized Qualified Code(s): R10.84 - Generalized abdominal pain (5) Diarrhea Current Visit: Yes Status: Acute Assessment and plan: Improved. GI consulted; appreciate input. Will need EGD and colonoscopy when stable. Liver U/S with mildly echogenic liver suggestive of heapatic steatosis , otherwise normal. Address dehydration as per above. Qualifiers: Diarrhea type: unspecified type Qualified Code(s): R19.7 - Diarrhea, unspecified (6) Generalized weakness Current Visit: Yes Status: Acute Assessment and plan: Patient with generalized weakness and unable to walk or ambulate. Will address acute issues and get PT/OT consult when medically stable. History of MS, as per below, and this may be contributing, however full extent of disease and history unknown. Neurology consulted; appreciate input. Brain MRI with moderate chronic small vessel ischemic changes; no acute process. (7) Unable to ambulate Current Visit: Yes Status: Chronic (8) Multiple sclerosis Current Visit: Yes Status: Chronic Assessment and plan: Neurology consulted; appreciate input. They suspect that she may not have this. Likely not a good candidate for disease modifying therapy. (9) Hypokalemia Current Visit: Yes Status: Resolved Assessment and plan: Resolved. K = 4.1. Recheck BMP in AM. (10) Acute cystitis with hematuria Current Visit: Yes Status: Suspected Assessment and plan: Continue rocephin and azithromycin. Follow up on urine culture. (11) Community acquired pneumonia Current Visit: Yes Status: Suspected Assessment and plan: Respiratory status stable. Continue rocephin and azithromycin. Qualifiers: Laterality: left Lung location: lower lobe of lung Qualified Code(s): J18.1 - Lobar pneumonia, unspecified organism - Time Spent With Patient less than 15 minutes - Subjective Interval history: Patient had no acute events overnight. She has been on levophed since yesterday evening; unable to wean overnight. This morning, patient states that she is doing well. She is still somewhat confused and has difficult time communicating. She denies SOB, chest pain, fever, or chills. She has no new complaints. Nursing staff reports that UOP still minimal. - Constitutional Vitals: Temp Pulse Resp BP Pulse Ox 96.6 F L 69 16 109/62 98 12/23/17 08:00 12/23/17 09:00 12/23/17 09:00 12/23/17 09:00 12/23/17 09:00 General appearance: Present: A&O X 2, morbidly obese, pleasant, no acute distress, answers questions appropriately - Respiratory Respiratory exam: Present: CTAB. Absent: accessory muscle use, rales, rhonchi, wheezes Additional comments: Normal WOB - Cardiovascular Cardiovascular exam: Present: RRR, +S1, +S2. Absent: diastolic murmur, gallop, rubs, systolic murmur Additional comments: 2+ pitting BUE and BLE edema - GI/Abdominal GI/Abdominal exam: Present: normal bowel sounds, soft. Absent: distended, hepatomegaly, mass, splenomegaly, tenderness - Psychiatric Psychiatric exam: Present: normal affect, normal mood. Absent: anxious, depressed - Skin Skin exam: Present: dry, intact, warm. Absent: cyanosis, rash Additional comments: Mild jaundice Internal Medicine: Result - Labs CBC & Chem 7: 12/23/17 03:35 12/23/17 03:35 Labs: Short CBC 12/23/17 Range/Units 03:35 WBC 21.5 H (4.3-11.1) K/mcL Hgb 9.8 L (11.5-15.4) g/dL Hct 31.1 L (35.3-44.9) % Plt Count 129 L D (140-400) K/mcL Neutrophils # 18.4 H (1.6-8.9) K/mcL BMP 12/23/17 03:35 Sodium 131 L Potassium 4.1 Chloride 96 L Carbon Dioxide 23 BUN 53 H Creatinine 3.69 H Glucose 193 H Calcium 8.1 L Liver Function 12/23/17 Range/Units 03:35 Total Bilirubin 9.2 H (0.3-1.0) mg/dL AST 39 (13-39) Units/L ALT 15 (7-52) Units/L Alkaline Phosphatase 80 (34-104) Units/L Albumin 2.6 L (3.5-5.7) g/dL - ABG Interpretation ABG results: PT/INR, D-dimer PT 31.6 Seconds (9.4-12.1) H 12/22/17 08:19 - Impressions Impressions Guidance Ultrasound 12/22/17 00:00 IMPRESSION: Ultrasound-guided placement of a temporary HD catheter and central line as above. No immediate complications. D/ / Renzo Felipe MD / Renzo Felipe MD Interpreting Provider: Renzo Felipe MD Guidance Ultrasound 12/22/17 00:00 IMPRESSION: Ultrasound-guided placement of a temporary HD catheter and central line as above. No immediate complications. D/ / Renzo Felipe MD / Renzo Felipe MD Interpreting Provider: Renzo Felipe MD Insertion Non-Tunneled Catheter 12/22/17 00:00 IMPRESSION: Ultrasound-guided placement of a temporary HD catheter and central line as above. No immediate complications. D/ / Renzo Felipe MD / Renzo Felipe MD Interpreting Provider: Renzo Felipe MD Insertion Non-Tunneled Catheter 12/22/17 00:00 IMPRESSION: Ultrasound-guided placement of a temporary HD catheter and central line as above. No immediate complications. D/ / Renzo Felipe MD / Renzo Felipe MD Interpreting Provider: Renzo Felipe MD Chest X-Ray 12/22/17 11:53 IMPRESSION: 1. Right jugular central venous line in place terminating in the right atrium 2. Right-sided hemodialysis catheter in place from right jugular approach terminating near the junction of the SVC and the right atrium 3. Evidence for cardiomegaly with pulmonary vascular congestion and edema 4. No pneumothorax D/ / Cedrick Shah MD / Cedrick Shah MD Interpreting Provider: Cedrick Shah MD Consult Discharge Plan - Plan Referrals: Sarita Dunbar, SENSOR TECHNICIAN [Advanced Practice Nurse] - 12/31/17 2:00 pm
--- NOTE | 2017-12-23 11:32 | Nephrology Progress Note ---
Date of Encounter: 12/23/17 Time of Encounter: 09:35 - Assessment and Plan (1) YURI (acute kidney injury) Current Visit: Yes Status: Acute Continue Amber today with CVVHDF at 4K/2.5Ca on dialysate and replacement fluid at 1250mL/hr with a BFR of 200 Target UF is net or up to Net+50mL/hr as tolerated by hemodynamics -- she remains on pressors. Discussed with the AFTER SCHOOL COUNSELOR and the hospitalist earlier today. Will continue to closely follow with you. Continue to follow a renal protective strategy: dose Rx by GFR, avoid NSAIDs, IV contrast and other nephrotoxins. Strict I/Os and daily weights to be collected. [facility] 35 min including exam, logistics, documentation, MDM of Amber. Will follow with you. Thank you. (2) Anemia Current Visit: Yes Status: Acute As long as she is not loosing blood, the goal Hgb is 10-11 in the setting of CKD. Will monitor and may provide either IV iron and/or ALLEN at some point. Qualifiers: Anemia type: unspecified type Qualified Code(s): D64.9 - Anemia, unspecified (3) Morbid obesity with BMI of 60.0-69.9, adult Current Visit: Yes Status: Chronic Noted and detention would be ideal to loose weight. (4) Cirrhosis of liver Current Visit: Yes Status: Chronic Will monitor. Cannot rule out HRS, but this is a diagnosis of exclusion. If she were to need tank terminal gauger HD, this would greatly impact her candidacy for detention HD. Agree with Midodrine. I may add Albumin as well. Qualifiers: Hepatic cirrhosis type: other cirrhosis Qualified Code(s): K74.69 - Other cirrhosis of liver Subjective Principal diagnosis: YURI Interval history: Pt was seen and examined in the ICU. No family at bedside, and her mentation is slightly improve with her able to carry short conversations, but still limited. She did not affirm N/V or abd pain. Objective - Vital Signs Vital signs: Vital Signs Temp Pulse Resp BP Pulse Ox 12/23/17 11:00 66 14 104/59 97 12/23/17 10:00 58 14 103/42 95 12/23/17 09:00 69 16 109/62 98 12/23/17 08:00 96.6 F L 58 16 107/46 100 12/23/17 07:26 68 12/23/17 06:59 67 18 107/59 95 12/23/17 06:00 63 18 115/50 94 12/23/17 05:00 57 16 62/46 98 12/23/17 04:00 67 16 99/53 98 12/23/17 03:00 64 16 94/39 100 12/23/17 02:00 63 16 94/53 99 12/23/17 01:00 61 16 78/38 100 12/23/17 00:00 63 16 93/54 99 12/22/17 23:00 53 16 100/66 99 12/22/17 22:00 57 16 101/57 99 12/22/17 21:00 96.7 F L 69 16 96/40 99 12/22/17 20:00 61 14 83/66 100 12/22/17 19:00 61 14 111/61 98 12/22/17 18:00 57 16 103/44 100 12/22/17 17:00 67 16 70/34 98 12/22/17 16:00 71 16 84/43 99 12/22/17 15:00 65 14 87/49 94 12/22/17 14:00 65 14 94/43 95 12/22/17 13:00 74 14 87/49 95 12/22/17 12:40 73 14 93/44 95 12/22/17 12:25 73 14 92/55 94 12/22/17 12:10 73 14 92/55 92 12/22/17 12:00 70 14 89/42 95 12/22/17 11:55 66 87/54 92 Intake and Output 12/22/17 12/23/17 12/23/17 23:59 07:59 15:59 Intake Total 264 / 264 805 / 805 362 / 362 Output Total 301 / 301 622 / 622 407 / 407 Balance -37 / -37 183 / 183 -45 / -45 Intake: IV Fluids 264 / 264 805 / 805 362 / 362 PrismaSATE BGK 4/2.5 5,000 ML @ 0 / 0 0 / 0 1250 mls/hr CRRT CONT [facility] Rx#: [id number] Levophed 4 MG In Dextrose 5% 254 / 254 555 / 555 203 / 203 250 ML @ 2 MCG/MIN 7.62 mls/hr IVC CONT KR[facility] Rx#:[id number] Levophed 8 MG In Dextrose 5% 149 / 149 500 ML @ 2 MCG/MIN 7.62 mls/hr IVC CONT [facility] Rx#:[id number] Rocephin 1,000 MG In Water for inj. (sterile) 10 ML @ 300 mls/ hr IVP DAILY [facility] Rx#:[id number] Zithromax 500 mg In Dextrose 5% 250 / 250 250 ML @ 252 mls/hr IVPB Q24H [facility] Rx#:[id number] Oral 0 / 0 0 / 0 0 / 0 Output: Urine 0 / 0 Amber 301 / 301 622 / 622 407 / 407 Catheter 0 / 0 0 / 0 0 / 0 - General Appearance Exam: General appearance: Present: appears started age, obese, frail EENT: Present: mucous membranes dry, supple Neck: Present: supple Additional Comments: Right IJ temporary HD catheter with dressing C/D/I Respiratory: Present: course breath sounds (but limited d/t her morbid obesity) Cardiology: Present: edema (1+ pitting pretibial edema bilaterally), regular rate, regular rhythm, normal S1, normal S2 Gastrointestinal: Present: normoactive bowel sounds, no tenderness, obese (very large pannus) Integumentary: Present: warm and dry Neurologic: Present: confused, disoriented Musculoskeletal: Present: no erythema, no cyanosis Psychiatric: Present: cooperative - Lab 12/23/17 03:35 12/23/17 03:35 Most recent lab results Calcium 8.1 mg/dL (8.6-10.3) L 12/23/17 03:35 Phosphorus 5.6 mg/dL (2.7-4.5) H 12/21/17 02:57 Magnesium 1.9 mg/dL (1.6-2.6) 12/20/17 02:10 Urine Sodium 10.3 mEq/L 12/19/17 19:54 Consult Discharge Plan - Plan Referrals: Sarita Dunbar, FAST FOOD SALES ASSISTANT [Advanced Practice Nurse] - 12/31/17 2:00 pm
[2017-12-23 14:34] LABS: AFP Tumor Marker Non-Pregnant 4 ng/mL (0-9); Immunoglobulin A (CELIAC) 1010 mg/dL (68-408)
[2017-12-24] MEDS: Azithromycin 500 MG in D5% in Water 250 ML IVPB SCH (01:29)
[2017-12-24] MEDS: Insulin LISPRO 300 UNITS/3 ML VIAL SQ SCH ×5 (01:32→23:52)
[2017-12-24] MEDS: PrismaSATE BGK 4/2.5 5,000 ML CRRT SCH ×6 (03:09→22:09)
[2017-12-24 03:54] LABS: Basophils % 0.1 %; Eosinophils % 0.1 %; Immature Granulocytes % 3.4 % (0-4); Nucleated Red Blood Cells 1.9 /100 WBC (0); Red Cell Distribution Width 17.2 % (11.5-14.5)
[2017-12-24 03:55] LABS: Hematocrit 29.3 % (35.3-44.9); Hemoglobin 9.2 g/dL (11.5-15.4); Immature Platelets 4.7 % (1.1-6.1); Lymphocytes # 0.9 K/mcL (0.6-4.6); Lymphocytes % 3.9 %; Mean Corpuscular HGB Conc 31.4 g/dL (31.6-35.5); Mean Corpuscular Hemoglobin 32.6 pg (28.0-33.3); Mean Corpuscular Volume 103.9 fL (83.0-100.0); Mean Platelet Volume 9.6 fL (9.4-12.4); Monocytes # 1.4 K/mcL (0.0-1.3); Neutrophils # 20.5 K/mcL (1.6-8.9); Red Blood Count 2.82 M/mcL (3.82-4.97); Segmented Neutrophils % 86.5 %
[2017-12-24 03:57] LABS: Platelet Count 62 K/mcL (140-400)
[2017-12-24 04:14] LABS: Albumin 2.3 g/dL (3.5-5.7); Albumin/Globulin Ratio 0.6 (1.1-2.2); Bilirubin,Total 9.2 mg/dL (0.3-1.0); Calcium 8.2 mg/dL (8.6-10.3); Globulin 3.7 g/dL (2.4-3.5); Potassium 4.1 mEq/L (3.5-5.1)
[2017-12-24 04:57] LABS: Phosphorous 2.6 mg/dL (2.7-4.5)
[2017-12-24] MEDS ORDERED: Fluconazole 100 MG TABLET PO ONE (07:40)
[2017-12-24] MEDS: *HR* Heparin 5,000 UNIT/ML VIAL SQ SCH ×3 (08:10→20:13)
[2017-12-24 08:36] LABS: IFE Reflexed NOT DONE
[2017-12-24 08:38] LABS: ANA IgG by ELISA NONE DETECTED (None Detected); Myeloperoxidase Ab 0 AU/mL (0-19); Serine Protease-3 Antibody 0 AU/mL (0-19); Tissue Transglutaminase IgA 0 U/mL (0-3)
[2017-12-24] MEDS: cefTRIAXone 1,000 MG in Water for inj. (sterile) 20 ML 10 ML IVP SCH (08:54)
[2017-12-24 09:08] LABS: Complement Component 3 56 mg/dL (88-201); Complement Component 4 10 mg/dL (10-40)
[2017-12-24 09:26] LABS: Saccharomyces cerevisiae IgA 10.3 Units (0.0-24.9)
[2017-12-24] MEDS ORDERED: Fluconazole 200 MG/100 ML 200 MG/100 ML BAG IVPB SCH (10:45)
--- NOTE | 2017-12-24 10:45 | Internal Med Progress Note ---
Date of Encounter: 12/24/17 Time of Encounter: 10:39 - Assessment and plan (1) Acute renal failure Current Visit: Yes Status: Acute Assessment and plan: Improved. Cr = 2.36. UOP still low. Nephrology consulted; appreciate input. On Amber at this time. Continue gentle IV hydration per nephrology. Monitor UOP. Avoid nephrotoxins. Recheck CMP in AM. Qualifiers: Acute renal failure type: unspecified Qualified Code(s): N17.9 - Acute kidney failure, unspecified (2) Dehydration Current Visit: Yes Status: Acute Assessment and plan: Likely secondary to N/V. IVF hydration per nephrology as per above. Recheck CMP in AM. (3) Leukocytosis Current Visit: Yes Status: Acute Assessment and plan: Little worse. WBC = 23.7. Possibility of pneumonia; likely has UTI. Continue rocephin and azithromycin at this time as per below. Will add IV vancomycin to broaden coverage. Also added IV fluconazle as per below. Qualifiers: Leukocytosis type: bandemia Qualified Code(s): D72.825 - Bandemia (4) Abdominal pain Current Visit: Yes Status: Resolved Assessment and plan: Resolved at this time. This seems to be a subacute issue for her. GI consulted ; appreciate input. Plan for scopes when medically stable. Will monitor for recurrence. Qualifiers: Abdominal location: generalized Qualified Code(s): R10.84 - Generalized abdominal pain (5) Diarrhea Current Visit: Yes Status: Acute Assessment and plan: Improved. GI consulted; appreciate input. Will need EGD and colonoscopy when stable. Liver U/S with mildly echogenic liver suggestive of heapatic steatosis , otherwise normal. Address dehydration as per above. Qualifiers: Diarrhea type: unspecified type Qualified Code(s): R19.7 - Diarrhea, unspecified (6) Generalized weakness Current Visit: Yes Status: Acute Assessment and plan: Patient with generalized weakness and unable to walk or ambulate. Will address acute issues and get PT/OT consult when medically stable. History of MS, as per below, and this may be contributing, however full extent of disease and history unknown. Neurology consulted; appreciate input. Brain MRI with moderate chronic small vessel ischemic changes; no acute process. (7) Unable to ambulate Current Visit: Yes Status: Chronic (8) Multiple sclerosis Current Visit: Yes Status: Chronic Assessment and plan: Neurology consulted; appreciate input. They suspect that she may not have this. Likely not a good candidate for disease modifying therapy. (9) Hypokalemia Current Visit: Yes Status: Resolved Assessment and plan: Resolved. K = 4.1. Recheck CMP in AM. (10) Acute cystitis with hematuria Current Visit: Yes Status: Suspected Assessment and plan: Continue rocephin and azithromycin. IV vancomycin added as per above. Will start IV fluconazole due to yeast in urine culture. (11) Community acquired pneumonia Current Visit: Yes Status: Suspected Assessment and plan: Respiratory status stable. Continue rocephin and azithromycin. Vancomycin added to broaden coverage given worsening leukocytosis. Qualifiers: Laterality: left Lung location: lower lobe of lung Qualified Code(s): J18.1 - Lobar pneumonia, unspecified organism - Time Spent With Patient less than 15 minutes - Subjective Interval history: Patient had no acute events overnight. She has been slowly weaned down on levophed yesterday; now on rate of 2 with BP holding in systolic 80-90s, which is likely her baseline. She is a little more somnolent this AM. I am able to arouse her and she does seem to answer some questions, but does not participate much in the interview. Nursing staff still reports minimal UOP. She denies SOB , chest pain, fever, or chills. She has no new complaints. - Constitutional Vitals: Temp Pulse Resp BP Pulse Ox 96.5 F L 78 18 104/58 99 12/24/17 08:00 12/24/17 10:00 12/24/17 10:00 12/24/17 10:00 12/24/17 10:00 General appearance: Present: A&O X 1, morbidly obese, pleasant, no acute distress, answers questions appropriately Exam: Somnolent - Respiratory Respiratory exam: Present: CTAB. Absent: accessory muscle use, rales, rhonchi, wheezes Additional comments: Normal WOB - Cardiovascular Cardiovascular exam: Present: RRR, +S1, +S2. Absent: diastolic murmur, gallop, rubs, systolic murmur Additional comments: 2+ pitting BUE and BLE edema - GI/Abdominal GI/Abdominal exam: Present: normal bowel sounds, soft. Absent: distended, hepatomegaly, mass, splenomegaly, tenderness - Psychiatric Psychiatric exam: Present: normal affect, normal mood. Absent: anxious, depressed - Skin Skin exam: Present: dry, intact, warm. Absent: cyanosis, rash Additional comments: Mild jaundice Internal Medicine: Result - Labs CBC & Chem 7: 12/24/17 03:30 12/24/17 03:30 Labs: Short CBC 12/24/17 Range/Units 03:30 WBC 23.7 H (4.3-11.1) K/mcL Hgb 9.2 L (11.5-15.4) g/dL Hct 29.3 L (35.3-44.9) % Plt Count 62 L D (140-400) K/mcL Neutrophils # 20.5 H (1.6-8.9) K/mcL BMP 12/24/17 03:30 Sodium 132 L Potassium 4.1 Chloride 100 Carbon Dioxide 24 BUN 34 H Creatinine 2.36 H Glucose 137 H Calcium 8.2 L Liver Function 12/24/17 Range/Units 03:30 Total Bilirubin 9.2 H (0.3-1.0) mg/dL AST 52 H (13-39) Units/L ALT 17 (7-52) Units/L Alkaline Phosphatase 78 (34-104) Units/L Albumin 2.3 L (3.5-5.7) g/dL - ABG Interpretation ABG results: PT/INR, D-dimer PT 31.6 Seconds (9.4-12.1) H 12/22/17 08:19 Consult Discharge Plan - Plan Referrals: Sarita Dunbar, PARATRANSIT OPERATOR [Advanced Practice Nurse] - 12/31/17 2:00 pm
--- NOTE | 2017-12-24 14:23 | Nephrology Progress Note ---
Date of Encounter: 12/24/17 Time of Encounter: 12:30 - Assessment and Plan (1) YURI (acute kidney injury) Status: Acute CVVHDF. Discussed with his daughter and son-in-law. Dec'd UF goals d/t ongoing hypotension. Discussed for several min the Amber setting and mgt plan of the Amber Filter and UF goals. Should not induce further hypotension Continue to follow a renal protective strategy: dose Rx by GFR, avoid NSAIDs, IV contrast and other nephrotoxins. Strict I/Os and daily weights to be collected. [facility] 35 min including exam, logistics, documentation, MDM of Amber. Will follow with you. Thank you. (2) Anemia Status: Acute As long as she is not loosing blood, the goal Hgb is 10-11 in the setting of CKD. Will monitor and may provide either IV iron and/or ALLEN at some point. Qualifiers: Anemia type: unspecified type Qualified Code(s): D64.9 - Anemia, unspecified (3) Morbid obesity with BMI of 60.0-69.9, adult Status: Chronic Noted and penitentiary would be ideal to loose weight. (4) Cirrhosis of liver Status: Chronic Will monitor. Cannot rule out HRS, but this is a diagnosis of exclusion. If she were to need penitentiary HD, this would greatly impact her candidacy for termite exterminator HD. Agree with Midodrine. I may add Albumin as well. Qualifiers: Hepatic cirrhosis type: other cirrhosis Qualified Code(s): K74.69 - Other cirrhosis of liver Subjective Principal diagnosis: YURI Interval history: Pt was seen and examined in the ICU. No family at bedside, and her mentation is slightly improve with her able to carry short conversations, but still limited. She did not affirm N/V or abd pain. Objective - Vital Signs Vital signs: Vital Signs Temp Pulse Resp BP Pulse Ox 12/24/17 13:00 80 18 91/45 96 12/24/17 12:00 75 15 78/39 99 12/24/17 11:00 96.8 F L 74 15 87/43 99 12/24/17 10:00 78 18 104/58 99 12/24/17 09:00 79 16 86/58 100 12/24/17 08:00 96.5 F L 73 14 96/52 100 12/24/17 07:00 75 16 89/59 100 12/24/17 06:00 78 16 99/45 100 12/24/17 05:00 75 16 98/38 100 12/24/17 04:00 75 16 100/52 100 12/24/17 03:00 71 16 99/43 100 12/24/17 02:00 81 16 92/64 95 12/24/17 01:00 80 16 100/63 100 12/24/17 00:00 72 16 103/53 100 12/23/17 23:00 96.4 F L 78 16 96/46 100 12/23/17 22:00 71 16 104/55 99 12/23/17 21:00 77 16 97/55 100 12/23/17 20:00 75 16 88/48 100 12/23/17 19:00 68 16 104/49 100 12/23/17 18:00 78 16 104/55 100 12/23/17 17:00 75 14 103/56 99 12/23/17 16:00 96.9 F L 70 18 108/66 94 12/23/17 15:00 68 14 100/43 97 Intake and Output 12/23/17 12/24/17 12/24/17 23:59 07:59 15:59 Intake Total 231 / 231 397 / 397 168 / 168 Output Total 459 / 459 679 / 679 212 / 212 Balance -228 / -228 -282 / -282 -44 / -44 Intake: IV Fluids 231 / 231 397 / 397 168 / 168 PrismaSATE BGK 4/2.5 5,000 ML @ 0 / 0 0 / 0 1250 mls/hr CRRT CONT [facility] Rx#: [id number] Levophed 8 MG In Dextrose 5% 231 / 231 147 / 147 58 / 58 500 ML @ 2 MCG/MIN 7.62 mls/hr IVC CONT [facility] Rx#:[id number] Rocephin 1,000 MG In Water for 10 / 10 inj. (sterile) 10 ML @ 300 mls/ hr IVP DAILY [facility] Rx#:[id number] Zithromax 500 mg In Dextrose 5% 250 / 250 250 ML @ 252 mls/hr IVPB Q24H [facility] Rx#:[id number] Diflucan Premix 200 MG/100 ML 100 / 100 200 mg In 100 ml @ 100 mls/hr IVPB DAILY [facility] Rx#:[id number] Oral 0 / 0 0 / 0 0 / 0 Output: Amber 459 / 459 679 / 679 202 / 202 Catheter 0 / 0 0 / 0 10 Other: Weight 151.3 kg Blood Glucose* 85 - General Appearance General appearance: Present: moderate distress, chronically ill, sedated on ventilator, fatigue, frail EENT: Present: ATNC Neck: Present: supple Respiratory: Present: course breath sounds Cardiology: Present: edema, normal S1, normal S2 Gastrointestinal: Present: normoactive bowel sounds, no tenderness, distended Integumentary: Present: cool/clammy Neurologic: Present: obtunded Musculoskeletal: Present: cyanosis - Lab 12/25/17 03:00 12/25/17 03:00 Most recent lab results Calcium 8.2 mg/dL (8.6-10.3) L 12/24/17 03:30 Phosphorus 2.6 mg/dL (2.7-4.5) L 12/24/17 03:30 Magnesium 1.9 mg/dL (1.6-2.6) 12/20/17 02:10 Urine Sodium 10.3 mEq/L 12/19/17 19:54 Consult Discharge Plan - Plan Referrals: Sarita Dunbar, CLARIFIER OPERATOR [Advanced Practice Nurse] - 12/31/17 2:00 pm
--- NOTE | 2017-12-24 14:25 | Palliative - Consult Note ---
Date of Encounter: 12/24/17 Time of Encounter: 14:00 - Assessment and Plan (1) Counseling regarding advanced care planning and goals of care Current Visit: Yes Status: Acute Assessment and plan: Meeting with Dr. Gallagher, myself, Mila Kunz MORTGAGE PROTECTION SPECIALIST regarding goals of care with pt daughter Carlie/son Xavier/grandson Erik. Discussed goals of care at length. Patient's children state that she has expressed her wishes many times she does not want placed on "machines" if she is critically ill. They have been updated on clinical status by nephrology as well as hospitalist over her care. They are in agreement with DNR/DNI status. They understand she is still critically ill, and desire to maintain current level of care and see how she does. Discussed very briefly that if she continues to do poorly, we can discuss transition to comfort care, and possibly discuss hospice. Palliative will follow closely. (2) Nausea Current Visit: Yes Status: Acute Assessment and plan: Continue Ondansetron PRN (3) YURI (acute kidney injury) Current Visit: Yes Status: Acute Assessment and plan: Nephrology following. (4) Cirrhosis of liver Current Visit: Yes Status: Chronic Qualifiers: Hepatic cirrhosis type: other cirrhosis Qualified Code(s): K74.69 - Other cirrhosis of liver Palliative-CN HPI - Data of Consult Consult date: 12/24/17 Requesting Physician: Aj Gallagher Primary Care Provider: Cristiana Arreaga, - Consult Narrative History of present illness: Ms. Ambriz is a 72 year old female with history of morbid obesity, diabetes, rheumatoid arthritis, multiple sclerosis. Patient presented to ER after c/o increasing weakness, altered mental status and incontinence that initially began a few weeks prior to presentation. Son at bedside states that he wanted to call squad when he noticed her beginning changes, but patient refused for him to do so, as well as refused to go to physician. She sees no specialist other than her primary physician. CT abd demonstrated left pleural effusion, ascites, and generalized anasarca. Leukocytoses on admission as well. Her renal status continued to decline and was placed on Amber. She is requiring vasopressors for hypotension. Serum bilirubin continues to elevate as well. She is currently in ICU. Upon my visit, Hospitalist Dr. Gallagher is at the bedside speaking with family. Patient is slightly restless and moaning occasionally in bed. She will open eyes when name called, but does not follow commands, and no verbal response. Appears in no distress. CC: Aj Gallagher Past Med Surg Social Fam HX - Past Medical History Medical history: arthritis, diabetes, RA Psychiatric history: no psych history - Past Surgical History Surgical History: cholecystectomy - Social History Smoking Status: Former smoker Smokeless Tobacco Status: No Alcohol use: none Drug use: none - Family History Mother Living Status: Cause of : cancer Hx Family Cancer: Yes (throat cancer) Father Living Status: Hx Family Cancer: Yes (lung cancer) Medications and Allergies Atenolol [Tenormin] 25 mg PO DAILY 12/20/17 [History] Ergocalciferol (VITAMIN D2) [Vitamin D2] 50,000 unit PO QWEEK 12/20/17 [History] Furosemide [Lasix] 40 mg PO BID 12/20/17 [History] Omeprazole [PriLOSEC] 40 mg PO DAILY 12/20/17 [History] Oxycodone HCl [Oxycodone HCl] 15 mg PO DAILY 12/20/17 [History] 3 Allergy/AdvReac Type Severity Reaction Status Date / Time Penicillins Allergy Rash Verified 12/19/17 22:08 Sulfa (Sulfonamide Allergy Itching Verified 12/19/17 22:10 Antibiotics) ROS unobtainable: due to mental status Palliative Care-Exam - Constitutional Vitals: Temp Pulse Resp BP Pulse Ox 96.8 F L 81 17 91/67 93 12/24/17 11:00 12/24/17 14:00 12/24/17 14:00 12/24/17 14:00 12/24/17 14:00 General appearance: Present: morbidly obese - Head Head Exam: Present: normal inspection, normocephalic - Eye Eye exam: Present: scleral icterus - Respiratory Respiratory exam: Present: decreased breath sounds, CTAB - Cardiovascular Cardiovascular exam: Present: +S1, +S2 - GI/Abdominal Exam GI/Abdominal exam: Present: diminished bowel sounds, soft - Catheter Type: Urethral (Mcallister) Additional comments: No urine output noted - Extremities Exam Additional comments: 4+ bilateral pitting edema - Neurological Exam Neurological exam: Present: alert Additional comments: Opens eyes when name called. Does not verbalize or follow commands. Moaning occasionally - Skin Additional comments: Jaundiced Internal Medicine - CN: Reslt - Labs CBC & Chem 7: 12/24/17 03:30 12/24/17 03:30 Labs: Short CBC 12/24/17 Range/Units 03:30 WBC 23.7 H (4.3-11.1) K/mcL Hgb 9.2 L (11.5-15.4) g/dL Hct 29.3 L (35.3-44.9) % Plt Count 62 L D (140-400) K/mcL Neutrophils # 20.5 H (1.6-8.9) K/mcL BMP 12/24/17 03:30 Sodium 132 L Potassium 4.1 Chloride 100 Carbon Dioxide 24 BUN 34 H Creatinine 2.36 H Glucose 137 H Calcium 8.2 L Liver Function 12/24/17 Range/Units 03:30 Total Bilirubin 9.2 H (0.3-1.0) mg/dL AST 52 H (13-39) Units/L ALT 17 (7-52) Units/L Alkaline Phosphatase 78 (34-104) Units/L Albumin 2.3 L (3.5-5.7) g/dL - ABG Interpretation ABG results: PT/INR, D-dimer PT 31.6 Seconds (9.4-12.1) H 12/22/17 08:19 Consult Discharge Plan - Plan Referrals: Sarita Dunbar, LABORATORY TECHNICAL SPECIALIST [Advanced Practice Nurse] - 12/31/17 2:00 pm Palliative Quality Palliative Quality: Screen for Code Status: Yes, Screen for Goals of Care: Yes, Screen for Pain: Yes, If Pain Regimen Started, Initiate Bowel Regimen: NA, Screen for Nausea/Vomitting: Yes Code Status: 12/24/17 14:12 DNR [Resuscitation Status: Active] [RES] Routine Comment: Resuscitation Status: [id number]
[2017-12-24] MEDS: *HR* Dextrose 50 % in Water (Syg) 50 ML SYRINGE IVP PRN ×2 (17:45→23:51)
[2017-12-24 19:21] LABS: A1A SZ Specimen WHOLE BLOOD; Alpha-1-Antitrypsin S Allele NEGATIVE; Alpha-1-Antitrypsin Z Allele NEGATIVE
[2017-12-24] MEDS: Norepinephrine 8 MG in D5% in Water 500 ML IVC SCH (20:54)
[2017-12-25] MEDS: Azithromycin 500 MG in D5% in Water 250 ML IVPB SCH (01:20)
[2017-12-25] MEDS ORDERED: Aminoglycoside Consult 1 EACH MC ONE (02:06)
[2017-12-25] MEDS: PrismaSATE BGK 4/2.5 5,000 ML CRRT SCH ×4 (02:18→06:11)
[2017-12-25 03:23] LABS: Basophils % 0.2 %; Hemoglobin 8.3 g/dL (11.5-15.4); Immature Granulocytes % 2.4 % (0-4); Monocytes % 3.9 %
[2017-12-25 03:24] LABS: Basophils # 0.1 K/mcL (0.0-0.2); Hematocrit 26.7 % (35.3-44.9); Lymphocytes # 0.8 K/mcL (0.6-4.6); Lymphocytes % 2.1 %; Mean Corpuscular HGB Conc 31.1 g/dL (31.6-35.5); Mean Corpuscular Hemoglobin 32.3 pg (28.0-33.3); Mean Corpuscular Volume 103.9 fL (83.0-100.0); Mean Platelet Volume 10.4 fL (9.4-12.4); Monocytes # 1.5 K/mcL (0.0-1.3); Nucleated Red Blood Cells 1.6 /100 WBC (0); Red Blood Count 2.57 M/mcL (3.82-4.97); Red Cell Distribution Width 17.5 % (11.5-14.5); Segmented Neutrophils % 91.4 %
[2017-12-25 04:02] LABS: Neutrophils # 34.4 K/mcL (1.6-8.9); Platelet Count 36 K/mcL (140-400)
[2017-12-25 04:13] LABS: Alanine Aminotransferase 49 Units/L (7-52); Albumin/Globulin Ratio 0.5 (1.1-2.2); Alkaline Phosphatase 80 Units/L (34-104); Aspartate Amino Transferase 240 Units/L (13-39); BUN/Creatinine Ratio 13 (6-26); Bilirubin,Total 11.3 mg/dL (0.3-1.0); Blood Urea Nitrogen 22 mg/dL (8-23); Carbon Dioxide 22 mEq/L (23-29); Chloride 102 mEq/L (98-107); Globulin 3.9 g/dL (2.4-3.5); Glucose 94 mg/dL (70-105); Osmolality,Calculated 281 (280-300); Potassium 4.4 mEq/L (3.5-5.1); Sodium 134 mEq/L (136-145); Total Protein 5.9 g/dL (6.4-8.9); eGFR For African Americans 36 (> 60); eGFR For Non-African Americans 30 (> 60)
[2017-12-25] MEDS: *HR* Heparin 5,000 UNIT/ML VIAL SQ SCH (04:44)
[2017-12-25] MEDS: Insulin LISPRO 300 UNITS/3 ML VIAL SQ SCH ×2 (05:04→12:16)
--- NOTE | 2017-12-25 07:17 | Pulmonology Consult Note ---
Date of Encounter: 12/25/17 Time of Encounter: 07:16 Assessment and Plan (1) Hypotension Current Visit: Yes Status: Acute Qualifiers: Hypotension type: unspecified hypotension type Qualified Code(s): I95.9 - Hypotension, unspecified (2) Decompensated hepatic cirrhosis Current Visit: Yes Status: Acute (3) Sepsis Current Visit: Yes Status: Acute Qualifiers: Sepsis type: sepsis due to unspecified organism Qualified Code(s): A41.9 - Sepsis, unspecified organism (4) Encephalopathy Current Visit: Yes Status: Acute (5) YURI (acute kidney injury) Current Visit: Yes Status: Acute (6) Morbid obesity with BMI of 60.0-69.9, adult Current Visit: Yes Status: Chronic (7) Counseling regarding advanced care planning and goals of care Current Visit: Yes Status: Acute (8) Coagulopathy Current Visit: Yes Status: Acute (9) Thrombocytopenia Current Visit: Yes Status: Acute History of Present Illness Consult date: 12/25/17 Requesting physician: Alden Coughlin Reason for consult: other Chief complaint: Nausea (per HPI) History of present illness: This is a 9-year-old woman that the critical care service was consulted on to evaluate for critical care management. She has a past medical history of morbid obesity diabetes rheumatoid arthritis (not on treatment) multiple sclerosis (not on treatment) who presented initially for generalized weakness and urinary incontinence and bowel incontinence she is also been confused. She was found to have leukocytosis of 20,000 on admission Initial workup included a CT of the head abdomen and pelvis which did not identify an specific acute finding however she did have generalized anasarca and ascites. Of note she does also have a history of cirrhosis of this my knowledge unclear etiology and has had a history of esophageal varices in the past. The majority medical allergies taken for the medical records the bedside nursing staff as patient is obtunded and unable to participate in history gathering. Unfortunately the clinical course is deteriorated remarkably during her stay complicated by encephalopathy acute kidney injury requiring CRRT, hypotension requiring vasopressor support and persistent leukocytosis. At this point she is obtunded and unable to follow commands. Overall prognosis was deemed poor by the primary medicine service and nephrology service in the eye discussion along with palliative care yesterday regarding goals of care which point she was made DNAR/DNI Past Med Surg Social Fam HX - Past Medical History Medical history: arthritis, diabetes, RA Psychiatric history: no psych history - Past Surgical History Surgical History: cholecystectomy - Social History Smoking Status: Former smoker Smokeless Tobacco Status: No Alcohol use: none Drug use: none - Family History Mother Living Status: Cause of : cancer Hx Family Cancer: Yes (throat cancer) Father Living Status: Hx Family Cancer: Yes (lung cancer) Medications and Allergies Atenolol [Tenormin] 25 mg PO DAILY 12/20/17 [History] Ergocalciferol (VITAMIN D2) [Vitamin D2] 50,000 unit PO QWEEK 12/20/17 [History] Furosemide [Lasix] 40 mg PO BID 12/20/17 [History] Omeprazole [PriLOSEC] 40 mg PO DAILY 12/20/17 [History] Oxycodone HCl [Oxycodone HCl] 15 mg PO DAILY 12/20/17 [History] 3 Allergy/AdvReac Type Severity Reaction Status Date / Time Penicillins Allergy Rash Verified 12/19/17 22:08 Sulfa (Sulfonamide Allergy Itching Verified 12/19/17 22:10 Antibiotics) All Systems: The remainder of the systems were reviewed and are negative Physical Examination Vital Signs: Vital Signs, Last 4 Hours Pulse Resp BP Pulse Ox 12/25/17 07:00 80 13 96/60 100 12/25/17 06:00 76 13 100/32 98 12/25/17 04:59 82 15 94/47 98 12/25/17 04:00 76 14 98/47 98 General appearance: other (Patient is obtunded) Eyes: icteric ENT: oropharynx dry Effort: other (Shallow breathing with increased rate) Auscultation: bilateral: diminished breath sounds Cardiovascular: regular rate and rhythm Gastrointestinal: hypoactive bowel sounds, other (She is morbidly obese with large pannus the abdomen is not distended it is firm to palpation this elicits pain response when I press there is no rigidity or rebound tenderness however) Integumentary: normal (Evidence of jaundice ) Extremities: pulses normal (Pulses present bilaterally in the lower extremities) , anasarca pupils equal and round, other (She has minimal response to her name she has a pain response she does not move all extremities to command but does have spontaneous movements of her extremities there is no grossly focal motor or sensory deficit however) other (Encephalopathic) Results - Laboratory Findings CBC and BMP: 12/25/17 03:00 12/25/17 03:00 PT/INR, D-dimer PT 31.6 Seconds (9.4-12.1) H 12/22/17 08:19 Abnormal lab findings: Abnormal lab results WBC 37.6 K/mcL (4.3-11.1) H* D 12/25/17 03:00 RBC 2.57 M/mcL (3.82-4.97) L 12/25/17 03:00 Hgb 8.3 g/dL (11.5-15.4) L 12/25/17 03:00 Hct 26.7 % (35.3-44.9) L 12/25/17 03:00 MCV 103.9 fL (83.0-100.0) H 12/25/17 03:00 MCHC 31.1 g/dL (31.6-35.5) L 12/25/17 03:00 RDW 17.5 % (11.5-14.5) H 12/25/17 03:00 Plt Count 36 K/mcL (140-400) L 12/25/17 03:00 Neutrophils # 34.4 K/mcL (1.6-8.9) H 12/25/17 03:00 Monocytes # 1.5 K/mcL (0.0-1.3) H 12/25/17 03:00 Nucleated RBCs/100 WBC 1.6 /100 WBC (0) H 12/25/17 03:00 Toxic Granulation Present (Not Present) A 12/21/17 02:57 Platelet Estimate Decreased (Normal) L 12/22/17 03:07 Polychromasia 1+ (Not Present) A 12/22/17 03:07 Anisocytosis 1+ (Not Present) A 12/22/17 03:07 PT 31.6 Seconds (9.4-12.1) H 12/22/17 08:19 Sodium 134 mEq/L (136-145) L 12/25/17 03:00 Carbon Dioxide 22 mEq/L (23-29) L 12/25/17 03:00 Creatinine 1.71 mg/dL (0.60-1.20) H 12/25/17 03:00 Est GFR ( Amer) 36 (> 60) L 12/25/17 03:00 Est GFR (Non-Af Amer) 30 (> 60) L 12/25/17 03:00 Lactic Acid 2.8 mmol/L (0.5-2.2) H 12/20/17 13:30 Uric Acid 12.0 mg/dL (2.3-7.6) H 12/21/17 02:57 Calcium 8.0 mg/dL (8.6-10.3) L 12/25/17 03:00 Venous Ioniz Calcium 0.98 mmol/L (1.15-1.35) L 12/22/17 11:27 Phosphorus 2.6 mg/dL (2.7-4.5) L 12/24/17 03:30 % Saturation 82 % (15-50) H 12/20/17 11:05 Transferrin 80 mg/dL (203-362) L 12/20/17 11:05 Total Bilirubin 11.3 mg/dL (0.3-1.0) H 12/25/17 03:00 Direct Bilirubin 2.8 mg/dL (0.0-0.2) H 12/21/17 02:57 Indirect Bilirubin 2.4 mg/dL (0.0-1.2) H 12/21/17 02:57 AST 240 Units/L (13-39) H 12/25/17 03:00 Ammonia 63 mcmol/L (16-53) H 12/25/17 03:00 Creatine Kinase 19 Units/L (30-223) L 12/19/17 22:37 Troponin I 0.07 ng/mL (< 0.04) H* 12/19/17 19:13 B-Natriuretic Peptide 989 pg/mL (Less than 100) H 12/20/17 02:10 Serum Total Protein 5.9 g/dL (6.4-8.9) L 12/25/17 03:00 Albumin 2.0 g/dL (3.5-5.7) L 12/25/17 03:00 Albumin (PEP) 2.73 g/dL (3.75-5.01) L 12/20/17 11:05 Globulin 3.9 g/dL (2.4-3.5) H 12/25/17 03:00 Albumin/Globulin Ratio 0.5 (1.1-2.2) L 12/25/17 03:00 Jagwb-8-Czkdehjex 0.47 g/dL (0.19-0.46) H 12/20/17 11:05 Gamma Globulins 3.04 g/dL (0.62-1.51) H 12/20/17 11:05 Ceruloplasmin 16 mg/dL (17-54) L 12/20/17 11:05 HDL Cholesterol 5 mg/dL (40-59) L 12/20/17 02:10 Cholesterol/HDL Ratio 12.2 (0-4.9) H 12/20/17 02:10 Ur Specimen Adequacy See below A 12/19/17 19:05 Urine Color Red (Yellow) A 12/20/17 19:55 Urine Clarity Cloudy (Clear) A 12/20/17 19:55 Urine Protein 100 mg/dL (Neg-Trace) H 12/20/17 19:55 Urine Ketones Trace mg/dL (Negative) H 12/20/17 19:55 Urine Blood Large (Negative) H 12/20/17 19:55 Urine Nitrite Positive (Negative) A 12/20/17 19:55 Urine Bilirubin Large (Negative) H 12/20/17 19:55 Ur Leukocyte Esterase Small (Negative) H 12/20/17 19:55 Urine Microscopic RBC 5-15 per hpf (0-3) H 12/20/17 19:55 Urine Microscopic WBC 3-5 per hpf (0-3) H 12/20/17 19:55 Ur Squamous Epith Cells Many per lpf (None-Few) H 12/19/17 19:05 Amorphous Sediment Many (Few) H 12/19/17 19:05 Urine Yeast Many per hpf (None Seen) H 12/20/17 19:55 Ur Culture Indicated? YES (NO) A 12/20/17 19:55 Complement C3 56 mg/dL (88-201) L 12/21/17 02:57 - Microbiology Findings Microbiology Findings: Microbiology, Last 48 Hours 12/20/17 19:55 Urine Culture - Final Urine,Catheterized Cece glabrata - Diagnostic Findings Chest x-ray: report reviewed, image reviewed - Clinical Findings Intake & Output: Intake & Output 12/24/17 12/24/17 12/25/17 15:59 23:59 07:59 Intake Total 474 / 474 147.6 / 147.6 659 / 659 Output Total 277 / 277 239 / 239 896 / 896 Balance 197 / 197 -91.4 / -91.4 -237 / -237 Weight 149.5 kg Consult Discharge Plan - Plan Referrals: Sarita Dunbar, DATA CAPTURE SPECIALIST [Advanced Practice Nurse] - 12/31/17 2:00 pm - Attending Attestation I spent 35min of Critical Care time with this patient. It involved decision making of high complexity to assess, manipulate, and support vital organ system failure and/or to prevent further life threatening deterioration of the patient' s condition. The time involved in the performance of separately reportable procedures was not counted toward critical care time. Patient seen and examined at bedside Management was reviewed during multidisciplinary critical care rounds. DIRECTOR OF SOCIAL MEDIA MARKETING: Encephalopathy s/t decompensated cirrhosis and hyperammonemia complicated by Sepsis and YURI. Plan for lactulose however patient not taking any by mouth at this time. Could consider rectal delivery but this too has been complicated by body habitus and hypotension with fluid shifts. Consider NG tube placement we will discuss with GI given history of varices however contraindicated presently because of thrombocytopenia and coagulopathy with high risk for respiratory compromise and upper airway bleeding. She is also at risk for increased intracerebral pressure secondary to decompensated cirrhosis Pulm: Currently mild hypoxemia requiring 2 L nasal cannula ABG reassuring that no significant respiratory acidosis she is at high risk for further deterioration in related to respiratory failure because of inability to protect airway worsening encephalopathy who monitor this closely currently she is DNI. 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 I think that this is related to poor oncotic pressure and third spacing of fluid she is requiring norepinephrine CRRT is also contributing to this. I have ordered a lactate to be a checked we will also schedule albumin to increase intravascular volume given hypoalbuminemia and cirrhosis FEN-GI: She is nothing by mouth for now. History of esophageal varices but no evidence of overt hemorrhage at this time. Decompensated liver cirrhosis ZACARIAS D score greater than 30; she has been evaluated by gastroenterology during this admission Renal: AK I leading to need for CRRT nephrology following we will continue to monitor electrolytes and replace per protocol There is concern for hepatorenal syndrome she is on vasopressor currently I have added albumin and recommend the use of octreotide but will defer to nephrology service to determine the overall therapeutic benefit this patient ID: Worsening sepsis she is at risk for intra-abdominal infection including fungal infection given UT colonization with Cece glabrata given that this organism has had resistance to fluconazole I have added micafungin function she is also at risk for inducible ESBL infection related to recent uses a cephalosporin I have added meropenem for this reason and recommend continuing vancomycin. Blood cultures have been collected. Heme/Onc: Acute on chronic thrombocytopenia secondary to critical illness renal replacement therapy splenic sequestration possible DIC check fibrinogen and peripheral smear no acute indication for transfusion. Consider transfusing if platelets drop less than 20,000 or evidence of active bleeding coagulopathy is multifactorial and could be related to DIC underlying cirrhosis malnutrition and added vitamin K and well monitor INR we will add FFP if overt evidence of bleeding or oozing from catheter sites which at this point is not the case Endo: Glucose Monitored and has been stable recommend every 4 hour Accu-Cheks with evidence of liver dysfunction Integ/MSK: Skin Care per routine ICU Nursing Protocol to prevent ulcers. Lines: All lines examined without evidence of infection : Dispo: Remain in the ICU for critical illness CODE: DNAR/DNI Overall prognosis is extremely poor and she would be appropriate for transition to comfort measures. Palliative care is following plan for family meeting with the ICU staff and palliative care once family arrives today appears that the next of kin are 2 adult children there are 2 other living children one of whom has mental delay and the other has been estranged for many years.
[2017-12-25] MEDS ORDERED: *HR* Phytonadione 10 MG/ML AMPUL SQ SCH (07:45)
[2017-12-25] MEDS ORDERED: Meropenem 1,000 MG in Water for inj. (sterile) 20 ML 20 ML IVP SCH (08:00)
[2017-12-25] MEDS ORDERED: Albumin 25% 25gram/100mL 25 GM/100 ML IV.SOLN IVPB SCH (08:00)
[2017-12-25 08:21] LABS: Alpha-1-Antitrypsin 200 mg/dL (90-200)
[2017-12-25 08:40] LABS: INR 5.8; Prothrombin Time 64.5 Seconds (9.4-12.1)
--- NOTE | 2017-12-25 08:55 | Electrocardiograph Report ---
[place] [address] Test Date: 2017-12-19 Pat Name: Veronica Ambriz Department: 103 Room: 12 Gender: F Retirement Consultant: VIRGIL : 1945 Requested By: Terri Warren Order Number: [id number] Reading MD: Kerline Yuen Measurements Intervals [place] Rate: 66 P: MA: 0 QRS: -25 QRSD: 194 T: 116 QT: 473 QTc: 487 Interpretive Statements UNCLEAR UNDERLYING RHYTHM - BASELINE ARTIFACT LEFT BUNDLE BRANCH BLOCK [120+ ms QRS DURATION, 80+ ms Q/S IN V1/V2, 85+ ms R IN I/aVL/V5/V6] Electronically Signed On 12-25-2017 8:50:10 EDT by Kerline Yuen
[2017-12-25] MEDS ORDERED: Micafungin 100 MG in 0.9 % Sodium Chloride Mini Bag 100 ML IVPB SCH (09:00)
[2017-12-25 09:08] LABS: ABG Base Excess -1 mEq/L (-2 to 3); ABG HCO3 25 mEq/L (21-27); ABG Oxygen Saturation 94 % (95-98); ABG PCO2 41 mmHg (35-45); ABG PH 7.38 pH Units (7.32-7.45); ABG PO2 72 mmHg (85-104); ABG TCO2 26 mEq/L (20-26)
--- NOTE | 2017-12-25 10:53 | Nephrology Progress Note ---
Date of Encounter: 12/25/17 Time of Encounter: 09:20 - Assessment and Plan (1) YURI (acute kidney injury) Status: Acute Continue CVVHDF for now with current setting. She has a poor prognosis, and agree with a Palliative vs withdrawal. Continue to follow a renal protective strategy: dose Rx by GFR, avoid NSAIDs, IV contrast and other nephrotoxins. Strict I/Os and daily weights to be collected. [facility] 35 min including exam, logistics, documentation, MDM of Amber. Will follow with you. Thank you. (2) Anemia Status: Acute As long as she is not loosing blood, the goal Hgb is 10-11 in the setting of CKD. Will monitor and may provide either IV iron and/or ALLEN at some point. Qualifiers: Anemia type: unspecified type Qualified Code(s): D64.9 - Anemia, unspecified (3) Morbid obesity with BMI of 60.0-69.9, adult Status: Chronic Noted and prison would be ideal to loose weight. (4) Cirrhosis of liver Status: Chronic Will monitor. Cannot rule out HRS, but this is a diagnosis of exclusion. 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 Agree with Midodrine. I may add Albumin as well. Qualifiers: Hepatic cirrhosis type: other cirrhosis Qualified Code(s): K74.69 - Other cirrhosis of liver Subjective Principal diagnosis: YURI Interval history: Pt was seen and examined in the ICU. No family at bedside, and her mentation is slightly improve with her able to carry short conversations, but still limited. She did not affirm N/V or abd pain. Objective - Vital Signs Vital signs: Vital Signs Temp Pulse Resp BP Pulse Ox 12/25/17 10:00 77 15 90/47 100 12/25/17 09:00 93 14 104/72 100 12/25/17 08:00 96.5 F L 82 13 76/57 98 12/25/17 07:00 80 13 96/60 100 12/25/17 06:00 76 13 100/32 98 12/25/17 04:59 82 15 94/47 98 12/25/17 04:00 76 14 98/47 98 12/25/17 03:00 97.9 F 80 16 89/52 98 12/25/17 02:00 84 16 86/47 97 12/25/17 01:00 77 13 88/57 98 12/25/17 00:00 97.9 F 76 13 82/42 98 12/24/17 23:00 85 13 78/34 98 12/24/17 22:00 77 13 93/69 96 12/24/17 21:00 93 15 98/59 97 12/24/17 20:00 97.6 F 90 15 95/57 97 12/24/17 19:00 85 16 92/48 97 12/24/17 18:00 84 18 106/47 97 12/24/17 17:00 87 18 92/48 92 12/24/17 16:00 83 18 90/59 93 12/24/17 15:00 96.6 F L 88 15 102/40 92 12/24/17 14:00 81 17 91/67 93 12/24/17 13:00 80 18 91/45 96 12/24/17 12:00 75 15 78/39 99 12/24/17 11:00 96.8 F L 74 15 87/43 99 Intake and Output 12/24/17 12/25/17 12/25/17 23:59 07:59 15:59 Intake Total 147.6 / 147.6 659 / 659 163 / 163 Output Total 239 / 239 896 / 896 287 / 287 Balance -91.4 / -91.4 -237 / -237 -124 / -124 Intake: IV Fluids 147.6 / 147.6 659 / 659 163 / 163 PrismaSATE BGK 4/2.5 5,000 ML @ 0 / 0 0 / 0 1250 mls/hr CRRT CONT KRISH[facility] Rx#: [id number] Levophed 8 MG In Dextrose 5% 147.6 / 147.6 159 / 159 72 / 72 500 ML @ 2 MCG/MIN 7.62 mls/hr IVC CONT KRISHNA Rx#:[id number] Merrem 1,000 MG In Water for inj. (sterile) 20 ML @ 400 mls/ hr IVP Q12H [facility] Rx#:[id number] Flexbumin 25 gm In 100 ml @ Per 24 / Protocol IVPB Q8HR KRISH[facility] Rx#: [id number] Zithromax 500 mg In Dextrose 5% 250 / 250 250 ML @ 252 mls/hr IVPB Q24H [facility]ISH[facility] Rx#:[id number] Mycamine 100 MG In 0.9 % Sodium 47 / 47 Chloride (Mini-Bag +) 100 ML @ 100 mls/hr IVPB DAILY KRISH[facility] Rx#: [id number] Vancocin 1,500 MG In 0.9 % 250 / 250 Sodium Chloride 250 ML @ 167 mls/hr IVPB Q12H [facility]ISH[facility] Rx#: [id number] Oral 0 / 0 0 / 0 0 / 0 Output: Amber 239 / 239 896 / 896 287 / 287 Catheter 0 / 0 0 / 0 0 / 0 Other: Weight 149.5 kg Blood Glucose* 97 73 Patient Weight 12/25/17 23:59 Weight 149.5 kg - General Appearance Exam: General appearance: Present: moderate distress, chronically ill, sedated on ventilator, fatigue, frail EENT: Present: ATNC Neck: Present: supple Respiratory: Present: course breath sounds Cardiology: Present: edema, normal S1, normal S2 Gastrointestinal: Present: normoactive bowel sounds, no tenderness, distended, obese / pannus Integumentary: Present: cool/clammy Neurologic: Present: obtunded Musculoskeletal: Present: cyanosis - Lab 12/25/17 03:00 12/25/17 03:00 Most recent lab results ABG pH 7.38 pH Units (7.32-7.45) 12/25/17 09:03 ABG pCO2 41 mmHg (35-45) 12/25/17 09:03 ABG pO2 72 mmHg (85-104) L 12/25/17 09:03 ABG HCO3 25 mEq/L (21-27) 12/25/17 09:03 ABG O2 Saturation 94 % (95-98) L 12/25/17 09:03 Calcium 8.0 mg/dL (8.6-10.3) L 12/25/17 03:00 Phosphorus 2.6 mg/dL (2.7-4.5) L 12/24/17 03:30 Magnesium 1.9 mg/dL (1.6-2.6) 12/20/17 02:10 Urine Sodium 10.3 mEq/L 12/19/17 19:54 Consult Discharge Plan - Plan Referrals: Sarita Dunbar, INTELLIGENCE OFFICER BASIC [Advanced Practice Nurse] - 12/31/17 2:00 pm
--- NOTE | 2017-12-25 11:37 | Palliative Progress Note ---
Date of Encounter: 12/25/17 Time of Encounter: 10:00 - Assessment and plan (1) Generalized pain Current Visit: Yes Status: Acute Assessment and plan: Will begin Fentanyl drip at 50mcg/hr and titrate for comfort. (2) Restlessness and agitation Current Visit: Yes Status: Acute Assessment and plan: Begin IV Lorazepam and titrate for comfort. MOnitor (3) Counseling regarding advanced care planning and goals of care Current Visit: Yes Status: Acute Assessment and plan: Meeting with daughter Carlie, her , nephew and niece, Dr. Bhatia, Mila Kunz GUITAR MAKER, primary nurse Soledad and myself regarding goals of care. Dr. Bhatia updated family on current clinical status and very poor prognosis. Family emotional but understanding. Per discussion with pt daughter Carlie, I notified Xavier, pt son and updated on condition and meeting. Son tearful and emotional over telephone, and stated he did not want his mother to suffer any longer and that we "gave her the best chance we could". Discussed that ashish/ atb/pressors would be discontinued and the hospital team would focus on intense symptom management instead, keeping her as comfortable as possible. Xavier stated that he would call Carlie and agree with transition to comfort care measures. 0434 update: Family in agreement to transition to comfort care and discontinue aggressive therapies not adding to her comfort. (4) Nausea Current Visit: Yes Status: Acute (5) YURI (acute kidney injury) Current Visit: Yes Status: Acute (6) Cirrhosis of liver Current Visit: Yes Status: Chronic Qualifiers: Hepatic cirrhosis type: other cirrhosis Qualified Code(s): K74.69 - Other cirrhosis of liver - Time Spent With Patient Total time spent is greater than 50% in coordination of care (as documented) at patient's floor/unit and/or counseling patient: - Subjective Interval history: Patient remains with altered mental status, does still open eyes when name called. She remains hypotensive, Levo at 7.5 currently. WBC markedly increased. INR 5.8. Lactic acid pending. Cultures redrawn this am. - Constitutional Vitals: Abnormal lab results WBC 37.6 K/mcL (4.3-11.1) H* D 12/25/17 03:00 RBC 2.57 M/mcL (3.82-4.97) L 12/25/17 03:00 Hgb 8.3 g/dL (11.5-15.4) L 12/25/17 03:00 Hct 26.7 % (35.3-44.9) L 12/25/17 03:00 MCV 103.9 fL (83.0-100.0) H 12/25/17 03:00 MCHC 31.1 g/dL (31.6-35.5) L 12/25/17 03:00 RDW 17.5 % (11.5-14.5) H 12/25/17 03:00 Plt Count 36 K/mcL (140-400) L 12/25/17 03:00 Neutrophils # 34.4 K/mcL (1.6-8.9) H 12/25/17 03:00 Monocytes # 1.5 K/mcL (0.0-1.3) H 12/25/17 03:00 Nucleated RBCs/100 WBC 1.6 /100 WBC (0) H 12/25/17 03:00 Toxic Granulation Present (Not Present) A 12/21/17 02:57 Platelet Estimate Decreased (Normal) L 12/22/17 03:07 Polychromasia 1+ (Not Present) A 12/22/17 03:07 Anisocytosis 1+ (Not Present) A 12/22/17 03:07 PT 64.5 Seconds (9.4-12.1) H* D 12/25/17 07:50 INR 5.8 H* D 12/25/17 07:50 Fibrinogen 107 mg/dL (169-393) L 12/25/17 07:50 ABG pO2 72 mmHg (85-104) L 12/25/17 09:03 ABG O2 Saturation 94 % (95-98) L 12/25/17 09:03 Sodium 134 mEq/L (136-145) L 12/25/17 03:00 Carbon Dioxide 22 mEq/L (23-29) L 12/25/17 03:00 Creatinine 1.71 mg/dL (0.60-1.20) H 12/25/17 03:00 Est GFR ( Amer) 36 (> 60) L 12/25/17 03:00 Est GFR (Non-Af Amer) 30 (> 60) L 12/25/17 03:00 Lactic Acid 2.8 mmol/L (0.5-2.2) H 12/20/17 13:30 Uric Acid 12.0 mg/dL (2.3-7.6) H 12/21/17 02:57 Calcium 8.0 mg/dL (8.6-10.3) L 12/25/17 03:00 Venous Ioniz Calcium 0.98 mmol/L (1.15-1.35) L 12/22/17 11:27 Phosphorus 2.6 mg/dL (2.7-4.5) L 12/24/17 03:30 % Saturation 82 % (15-50) H 12/20/17 11:05 Transferrin 80 mg/dL (203-362) L 12/20/17 11:05 Total Bilirubin 11.3 mg/dL (0.3-1.0) H 12/25/17 03:00 Direct Bilirubin 2.8 mg/dL (0.0-0.2) H 12/21/17 02:57 Indirect Bilirubin 2.4 mg/dL (0.0-1.2) H 12/21/17 02:57 AST 240 Units/L (13-39) H 12/25/17 03:00 Ammonia 63 mcmol/L (16-53) H 12/25/17 03:00 Creatine Kinase 19 Units/L (30-223) L 12/19/17 22:37 Troponin I 0.07 ng/mL (< 0.04) H* 12/19/17 19:13 B-Natriuretic Peptide 989 pg/mL (Less than 100) H 12/20/17 02:10 Serum Total Protein 5.9 g/dL (6.4-8.9) L 12/25/17 03:00 Albumin 2.0 g/dL (3.5-5.7) L 12/25/17 03:00 Albumin (PEP) 2.73 g/dL (3.75-5.01) L 12/20/17 11:05 Globulin 3.9 g/dL (2.4-3.5) H 12/25/17 03:00 Albumin/Globulin Ratio 0.5 (1.1-2.2) L 12/25/17 03:00 Peyfu-6-Xhhewaskd 0.47 g/dL (0.19-0.46) H 12/20/17 11:05 Gamma Globulins 3.04 g/dL (0.62-1.51) H 12/20/17 11:05 Ceruloplasmin 16 mg/dL (17-54) L 12/20/17 11:05 HDL Cholesterol 5 mg/dL (40-59) L 12/20/17 02:10 Cholesterol/HDL Ratio 12.2 (0-4.9) H 12/20/17 02:10 Lipase 276 Units/L (11-82) H 12/25/17 09:44 Ur Specimen Adequacy See below A 12/19/17 19:05 Urine Color Red (Yellow) A 12/20/17 19:55 Urine Clarity Cloudy (Clear) A 12/20/17 19:55 Urine Protein 100 mg/dL (Neg-Trace) H 12/20/17 19:55 Urine Ketones Trace mg/dL (Negative) H 12/20/17 19:55 Urine Blood Large (Negative) H 12/20/17 19:55 Urine Nitrite Positive (Negative) A 12/20/17 19:55 Urine Bilirubin Large (Negative) H 12/20/17 19:55 Ur Leukocyte Esterase Small (Negative) H 12/20/17 19:55 Urine Microscopic RBC 5-15 per hpf (0-3) H 12/20/17 19:55 Urine Microscopic WBC 3-5 per hpf (0-3) H 12/20/17 19:55 Ur Squamous Epith Cells Many per lpf (None-Few) H 12/19/17 19:05 Amorphous Sediment Many (Few) H 12/19/17 19:05 Urine Yeast Many per hpf (None Seen) H 12/20/17 19:55 Ur Culture Indicated? YES (NO) A 12/20/17 19:55 Complement C3 56 mg/dL (88-201) L 12/21/17 02:57 Palliative Quality Palliative Quality: Screen for Code Status: Yes, Screen for Goals of Care: Yes, Screen for Pain: Yes, If Pain Regimen Started, Initiate Bowel Regimen: NA, Screen for Nausea/Vomitting: Yes Code Status: 12/24/17 14:12 DNR [Resuscitation Status: Active] [RES] Routine Comment: Resuscitation Status: [id number] - Labs CBC & Chem 7: 12/25/17 03:00 12/25/17 03:00 Labs: Laboratory Results - last 24 hr 12/20/17 12/24/17 12/24/17 11:05 17:39 18:09 WBC RBC Hgb Hct MCV MCH MCHC RDW Plt Count MPV Immature Gran % Seg Neutrophils % Lymphocytes % Monocytes % Eosinophils % Basophils % Neutrophils # Lymphocytes # Monocytes # Eosinophils # Basophils # Nucleated RBCs/100 WBC PT INR Fibrinogen ABG pH ABG pCO2 ABG pO2 ABG HCO3 ABG Total CO2 ABG O2 Saturation ABG Base Excess O2 Delivery Device Inspired O2 Sodium Potassium Chloride Carbon Dioxide BUN Creatinine Est GFR ( Amer) Est GFR (Non-Af Amer) BUN/Creatinine Ratio Glucose POC Glucose 67 97 H Calculated Osmolality Calcium Total Bilirubin AST ALT Alkaline Phosphatase Ammonia Serum Total Protein Albumin Globulin Albumin/Globulin Ratio Oeusz-3-Lhvztcavbjr 200 Alpha-1-AT Phenotype NOT APPLICABLE A1AT Genotype Specimen WHOLE BLOOD A1AT S [place]le[place] NEGATIVE A1AT Z [place]le[place] NEGATIVE A1AT Genotype Interp SEE NOTE Lipase Vancomycin Trough Blood Type Antibody Screen 12/24/17 12/25/17 12/25/17 23:50 03:00 03:00 WBC 37.6 H* D RBC 2.57 L Hgb 8.3 L Hct 26.7 L MCV 103.9 H MCH 32.3 MCHC 31.1 L RDW 17.5 H Plt Count 36 L MPV 10.4 Immature Gran % 2.4 Seg Neutrophils % 91.4 Lymphocytes % 2.1 Monocytes % 3.9 Eosinophils % 0.0 Basophils % 0.2 Neutrophils # 34.4 H Lymphocytes # 0.8 Monocytes # 1.5 H Eosinophils # 0.0 Basophils # 0.1 Nucleated RBCs/100 WBC 1.6 H PT INR Fibrinogen ABG pH ABG pCO2 ABG pO2 ABG HCO3 ABG Total CO2 ABG O2 Saturation ABG Base Excess O2 Delivery Device Inspired O2 Sodium 134 L Potassium 4.4 Chloride 102 Carbon Dioxide 22 L BUN 22 Creatinine 1.71 H Est GFR ( Amer) 36 L Est GFR (Non-Af Amer) 30 L BUN/Creatinine Ratio 13 Glucose 94 POC Glucose 62 Calculated Osmolality 281 Calcium 8.0 L Total Bilirubin 11.3 H AST 240 H ALT 49 Alkaline Phosphatase 80 Ammonia Serum Total Protein 5.9 L Albumin 2.0 L Globulin 3.9 H Albumin/Globulin Ratio 0.5 L Cvljs-2-Suotphpzyfs Alpha-1-AT Phenotype A1AT Genotype Specimen A1AT S Allele A1AT Z Allele A1AT Genotype Interp Lipase Vancomycin Trough TNP Blood Type Antibody Screen 12/25/17 12/25/17 12/25/17 03:00 04:30 05:04 WBC RBC Hgb Hct MCV MCH MCHC RDW Plt Count MPV Immature Gran % Seg Neutrophils % Lymphocytes % Monocytes % Eosinophils % Basophils % Neutrophils # Lymphocytes # Monocytes # Eosinophils # Basophils # Nucleated RBCs/100 WBC PT INR Fibrinogen ABG pH ABG pCO2 ABG pO2 ABG HCO3 ABG Total CO2 ABG O2 Saturation ABG Base Excess O2 Delivery Device Inspired O2 Sodium Potassium Chloride Carbon Dioxide BUN Creatinine Est GFR ( Amer) Est GFR (Non-Af Amer) BUN/Creatinine Ratio Glucose POC Glucose 73 Calculated Osmolality Calcium Total Bilirubin AST ALT Alkaline Phosphatase Ammonia 63 H Serum Total Protein Albumin Globulin Albumin/Globulin Ratio Cyzuk-7-Qbcrloqzjjf Alpha-1-AT Phenotype A1AT Genotype Specimen A1AT S [place]lele A1AT Z Allele A1AT Genotype Interp Lipase Vancomycin Trough Blood Type O POSITIVE Antibody Screen NEGATIVE 12/25/17 12/25/17 12/25/17 07:50 09:03 09:44 WBC RBC Hgb Hct MCV MCH MCHC RDW Plt Count MPV Immature Gran % Seg Neutrophils % Lymphocytes % Monocytes % Eosinophils % Basophils % Neutrophils # Lymphocytes # Monocytes # Eosinophils # Basophils # Nucleated RBCs/100 WBC PT 64.5 H* D INR 5.8 H* D Fibrinogen 107 L ABG pH 7.38 ABG pCO2 41 ABG pO2 72 L ABG HCO3 25 ABG Total CO2 26 ABG O2 Saturation 94 L ABG Base Excess -1 O2 Delivery Device Cannula Inspired O2 2.0 Sodium Potassium Chloride Carbon Dioxide BUN Creatinine Est GFR ( Amer) Est GFR (Non-Af Amer) BUN/Creatinine Ratio Glucose POC Glucose Calculated Osmolality Calcium Total Bilirubin AST ALT Alkaline Phosphatase Ammonia Serum Total Protein Albumin Globulin Albumin/Globulin Ratio Kfcet-9-Jkeldcjdzsb Alpha-1-AT Phenotype A1AT Genotype Specimen A1AT S [place]le[place] A1AT Z Allele A1AT Genotype Interp Lipase 276 H Vancomycin Trough Blood Type Antibody Screen 12/25/17 11:24 WBC RBC Hgb Hct MCV MCH MCHC RDW Plt Count MPV Immature Gran % Seg Neutrophils % Lymphocytes % Monocytes % Eosinophils % Basophils % Neutrophils # Lymphocytes # Monocytes # Eosinophils # Basophils # Nucleated RBCs/100 WBC PT INR Fibrinogen ABG pH ABG pCO2 ABG pO2 ABG HCO3 ABG Total CO2 ABG O2 Saturation ABG Base Excess O2 Delivery Device Inspired O2 Sodium Potassium Chloride Carbon Dioxide BUN Creatinine Est GFR ( Amer) Est GFR (Non-Af Amer) BUN/Creatinine Ratio Glucose POC Glucose 88 Calculated Osmolality Calcium Total Bilirubin AST ALT Alkaline Phosphatase Ammonia Serum Total Protein Albumin Globulin Albumin/Globulin Ratio Otyso-1-Rluypqqcbim Alpha-1-AT Phenotype A1AT Genotype Specimen A1AT S Allele A1AT Z Allele A1AT Genotype Interp Lipase Vancomycin Trough Blood Type Antibody Screen - Impressions Impressions Chest X-Ray 12/25/17 07:27 IMPRESSION: 1. Stable right central venous catheters. 2. Stable large left pleural effusion with mild progressive left upper lobe atelectasis and stable complete left lower lobe atelectasis. 3. Stable interstitial pulmonary edema. D/ / 12/25/2017 08:37:29 [facility] Interpreting Provider: Alvin Sharma MD - ABG Interpretation ABG results: ABG ABG pH 7.38 pH Units (7.32-7.45) 12/25/17 09:03 ABG pCO2 41 mmHg (35-45) 12/25/17 09:03 ABG pO2 72 mmHg (85-104) L 12/25/17 09:03 ABG O2 Saturation 94 % (95-98) L 12/25/17 09:03 PT/INR, D-dimer PT 64.5 Seconds (9.4-12.1) H* D 12/25/17 07:50 Consult Discharge Plan - Plan Referrals: Sarita Dunbar, MANUFACTURING STOREPERSON [Advanced Practice Nurse] - 12/31/17 2:00 pm
[2017-12-25] MEDS ORDERED: Pantoprazole 40 MG VIAL IVP SCH (14:15)
[2017-12-25] MEDS ORDERED: *HR* LORazepam 2 MG/ML VIAL IVP PRN ×2 (15:14→19:26)
[2017-12-25] MEDS ORDERED: Scopolamine Patch 1.5 MG PATCH.TD72 TD SCH (15:15)
[2017-12-25] MEDS ORDERED: FentaNYL (PF) 1,000 MCG in 0.9 % Sodium Chloride 80 ML IVC SCH ×2 (15:15→19:26)
[2017-12-25] MEDS ORDERED: Atropine Sulfate 1% 40 DROP/2 ML BOTTLE SL PRN ×2 (15:15→19:26)
[2017-12-25] MEDS ORDERED: Ondansetron 4 MG/2 ML VIAL IVP PRN (19:26)
[2017-12-26 00:50] VITALS: BP 63/40
--- NOTE | 2017-12-26 02:35 | Death Note ---
Discharge Sum: Summary - Date and Time Date of admission: 12/20/17 03:44 Date of : 12/26/17 Time of : 02:07 - Summary Details: Called to see patient at 0214 by the nurse. Patient found to be unresponsive and without signs of life. I examined the patient and noted no respirations, no heart sounds, no corneal reflex, and pupils fixed and dilated. Time of 0207. Cause of related to end stage liver disease and sepsis. Family was notified by nursing staff. - Additional Data Confirmation of as documented by pronouncing clinician: no pulse, no respirations, no heart sounds, pupils fixed and dilated Family: contacted Attending physician: Aj Gallagher Was code activated?: No Discharge Sum: Diag - PCOD Probable Cause of : Hepatic encephalopathy Discharge Sum: Prov - Provider Primary care physician: Cristiana Arreaga, Admitting clinician: Reny Moran Attending physician on admission: Reny Moran Pronouncing clinician: Kevin Gutierrez
[2017-12-26 08:25] LABS: F-Actin (sm muscle) Ab IgG 31 Units (0-19)
[2017-12-26 15:11] LABS: Smooth Muscle Ab Titer IgG 1:20 (<1:20)
[2017-12-28] MEDS ORDERED: Scopolamine Patch 1.5 MG PATCH.TD72 TD SCH (15:15)
--- NOTE | 2018-01-01 10:53 | Discharge Summary ---
Orders not resulted at time of discharge: Pending orders 12/25/17 07:46 Fungal Culture,Blood [MYC] Stat Date of Encounter: 12/26/17 Time of Encounter: 07:07 - Discharge Diagnosis (1) Cardiac arrest Priority: Primary Status: Acute (2) Acute renal failure Priority: Secondary Status: Acute Qualifiers: Acute renal failure type: unspecified Qualified Code(s): N17.9 - Acute kidney failure, unspecified (3) Chronic liver disease Priority: Secondary Status: Chronic (4) Dehydration Priority: Secondary Status: Acute (5) Leukocytosis Priority: Secondary Status: Acute Qualifiers: Leukocytosis type: bandemia Qualified Code(s): D72.825 - Bandemia (6) Abdominal pain Priority: Secondary Status: Resolved Qualifiers: Abdominal location: generalized Qualified Code(s): R10.84 - Generalized abdominal pain (7) Diarrhea Priority: Secondary Status: Acute Qualifiers: Diarrhea type: unspecified type Qualified Code(s): R19.7 - Diarrhea, unspecified (8) Generalized weakness Priority: Secondary Status: Acute (9) Unable to ambulate Priority: Secondary Status: Chronic (10) Multiple sclerosis Priority: Secondary Status: Chronic (11) Hypokalemia Priority: Secondary Status: Resolved (12) Acute cystitis with hematuria Priority: Secondary Status: Suspected (13) Community acquired pneumonia Priority: Secondary Status: Suspected Qualifiers: Laterality: left Lung location: lower lobe of lung Qualified Code(s): J18.1 - Lobar pneumonia, unspecified organism Hospital course: Ms. Ambriz is a 72 year old female admitted for generalized weakness, abdominal pain, diarrhea, and acute kidney injury. She was admitted to general medical floor with telemetry. She was started on IVF and nephrology was consulted for YURI. CT abdomen was unremarkable except for ascites. Acute cystitis and pneumonia were suspected, and patient was started on rocephin and azithromycin. GI was consulted for abdominal pain and N/V/D, and they recommended EGD and colonscopy when patient medically stable. Nephrology planned for dialysis if no improvement. Her urine output remained poor throughout hospitalization. Neurology was consulted due to questionable prior history of multiple sclerosis. They did not think she truly had MS, and did not think she was a good candidate for disease modifying therapy given her age and comorbidities. She had dialysis catheter placed, but pulled this by accident and rapid response was called. Bleeding was monitored without further incident. A new catheter was placed by IR. Patient received first dialysis session, but started having hypotension afterwards. Given concern for continuing hypotension despite fluid boluses and scant urinary output, patient was transferred to ICU for closer monitoring. Nephrology concerned about worsening hypotension with dialysis, so arranged for Amber. She required pressors to maintain BP, and it was difficult to wean off. Fluconazole was added due to yeast in urine culture. Given patient's poor prognosis, palliative care was consulted. I discussed patient's situation with family, along with palliative care. Patient was changed to DNR and comfort care. Patient was found unresponsive on 12/26/17 around 02:00 by nurse. Patient was pronounced at 02:[address] Davis. Cause of was determined by her to be cadiac arrest secondary to end stage liver disease and sepsis. - Time Spent with Patient Total time spent providing and/or coordinating discharge services: Greater than 30 minutes - Discharge Medications Home Medications: Atenolol [Tenormin] 25 mg PO DAILY 12/20/17 [History] Ergocalciferol (VITAMIN D2) [Vitamin D2] 50,000 unit PO QWEEK 12/20/17 [History] Furosemide [Lasix] 40 mg PO BID 12/20/17 [History] Omeprazole [PriLOSEC] 40 mg PO DAILY 12/20/17 [History] Oxycodone HCl [Oxycodone HCl] 15 mg PO DAILY 12/20/17 [History] Allergies/Adverse Reactions: 3 Allergy/AdvReac Type Severity Reaction Status Date / Time Penicillins Allergy Rash Verified 12/19/17 22:08 Sulfa (Sulfonamide Allergy Itching Verified 12/19/17 22:10 Antibiotics) Date of admission: 12/20/17 03:44 Primary care physician: Cristiana Arreaga, Discharging clinician: Aj Gallagher Anticipated date of discharge: 12/26/17 - Patient Status Disposition: Condition: Serious - Discharge Instructions Follow Up With: Sarita Dunbar, BUSINESS OPERATIONS ANALYST [Advanced Practice Nurse] - 12/31/17 2:00 pm
== END 2017-12-26 02:07 | disposition expired | DRG 682 ==
LOC: EMEROO 18:20 → 2NENU 18:20 → ICNU 12-22 01:29 → 2ANU 12-25 23:06
PROVIDERS: ADMIT Internal Medicine Cardiovascular Disease; ATTEND Family Medicine